=== PATIENT | female | born 1950 | race Caucasian/White ===

== ENCOUNTER → 2017-01-17 | Outpatient (CLI) | payer MEDICARE, OTHER ==
[~2017-01-17] MED LIST: ASP81CT PO; CA C1TAB26 PO; CALCIUM VIT D PO; CYAN1LOZ SL; CYCL10TA9 PO; MAGN400C PO; MELO-198 PO; MULT-963 PO; OXYC-200 PO; SIMV40TA2 PO
--- NOTE | 2017-01-23 18:14 | Diagnostic Imaging Report ---
Digital mammogram bilateral screening. This study was compared to the prior exams of 11/11/2015, 09/29/2014, and 03/06/2013. At this time, there are no current complaints. The current study was also evaluated with a Computer Aided Detection (CAD) system. FINDINGS: The fibroglandular tissue in both breasts is heterogeneously dense. This does limit the sensitivity of this exam. Overall, there does not appear to have been any significant change when compared to the prior study. No primary or secondary sign of malignancy is noted. IMPRESSION: There is no radiographic evidence for malignancy. ACR BI-RADS Category 1: Negative. Result letter will be mailed to the patient. Note: At least 10% of breast cancer is not imaged by mammography. Dictated by: Dictated on workstation # [id number]
== END ==
LOC: RAD 10:14
PROVIDERS: ATTEND Nurse Practitioner Family
DX: Z12.31 Encounter for screening mammogram for malignant neoplasm of breast (principal)
CPT/HCPCS: 77067

== ENCOUNTER 2017-06-21 11:19 | Outpatient (RCR) | payer MEDICARE, OTHER | END 2017-07-21 | disposition home or self-care (01) | LOC: CARD 11:19 | PROVIDERS: ATTEND Physician Assistant | DX: E78.2 Mixed hyperlipidemia; I25.10 Atherosclerotic heart disease of native coronary artery without angina pectoris; R06.02 Shortness of breath; R42 Dizziness and giddiness | CPT/HCPCS: 93225; 93226 ==

== ENCOUNTER → 2017-06-21 | Outpatient (CLI) | payer MEDICARE, OTHER | LOC: CARD 11:16 | PROVIDERS: ATTEND Physician Assistant | DX: I25.10 Atherosclerotic heart disease of native coronary artery without angina pectoris (principal); R42 Dizziness and giddiness; E78.2 Mixed hyperlipidemia; R06.02 Shortness of breath | CPT/HCPCS: 93306 ==

== ENCOUNTER → 2019-03-20 | Outpatient (CLI) | payer MEDICARE, OTHER ==
--- NOTE | 2019-03-20 20:38 | Diagnostic Imaging Report ---
INDICATION: Routine screening. Comparison is made with prior mammogram from 03/08/2018 and 01/17/2017. 2-D and 3-D bilateral screening mammography was performed with CAD. The current study was also evaluated with a Computer Aided Detection (CAD) system. Both breasts are heterogeneously dense, limiting the sensitivity of mammography. Scattered benign calcifications are again noted. No mass or malignant appearing microcalcifications are seen. Intraparenchymal lymph node in the upper-outer left breast is stable. Axillae are unremarkable. IMPRESSION: No mammographic features suspicious for malignancy are identified. ACR BI-RADS Category 2: Benign findings. Result letter will be mailed to the patient. Note: At least 10% of breast cancer is not imaged by mammography. Dictated by: Dictated on workstation # [id number]
== END ==
LOC: RAD 07:52
PROVIDERS: ATTEND Family Medicine
DX: Z12.31 Encounter for screening mammogram for malignant neoplasm of breast (principal)
CPT/HCPCS: 77067

== ENCOUNTER 2019-12-08 09:07 | Emergency (ER) | payer MEDICARE, OTHER ==
[~2019-12-08] VITALS: Ht 167.7 cm; Wt 97.2 kg
[2019-12-08] MEDS ORDERED: NS IV 1000 ML 1,000 ML IV SCH (10:03)
--- NOTE | 2019-12-08 10:10 | ED Chest Pain ---
General Chief Complaint: General Problems/Pain Stated Complaint: NUMB HANDS;LEFT SIDE PAIN Nursing Triage Note: TO ED PER W/C APPEARS TO BE HYPERVENTLATING,AND CRYING. REPORTS THAT SHE HAD A MASSAGE ON NOV 25 PAIN STARTED AFTER THAT. DEC [address] WAS PUT ON MEDS AND WAS TOLD SHE THOUGHT SHE WAS HAVING A FIBROMYALGIA FLARE.TODAY FELT NUMB DOWN BOTH ARMS AND IN HER HEAD. Nursing Sepsis Screen: No Definite Risk Source: patient, family Exam Limitations: no limitations History of Present Illness Date Seen by Provider: Dec 08, 2019 Time Seen by Provider: 09:41 Initial Comments The patient presents to ER by private conveyance with her spouse and chief complaint that she's having some right rib pain consistently for the past 6 weeks that started up after a deep tissue massage. She went to see her primary care doctor, Dr. Fonseca about a week or 2 ago and was started on muscle relaxants which she said did not help. Yesterday she started having some recurrence of left-sided abdominal pain that is chronic for her but 10 out of 10 when touched as well as light touch on her right ribs constant and 10 pain. 3 out of 10 at rest. She's not having any nausea fever chills cough shortness of breath wheezing or diarrhea. Noconstipation. Last bowel movement was yesterday, normal formed. She has a history of diverticulitis with short section of her colon removed surgically years ago. She does not smoke have diabetes use drugs or alcohol. She had a heart catheter many years ago and still follows with Dr. Berry but does not take blood thinners have any dysrhythmias or history of coronary disease. She has no stents. She does take aspirin daily. She does not want to take nitroglycerin because it causes headaches. She has a history of fibromyalgia and was told by her primary care doctor that her pains were probably due to the fibromyalgia however she said this morning when she had the worsening abdominal pain she became very scared and started to get tingling in her hands and hyperventilated. She takes Ativan 1 mg at night, regular basis for her anxieties. She did not take anymore this morning. Last oral intake was coffee with cream this morning and dinner yesterday evening. She has a history of cholecystectomy. Allergies and Home Medications Allergies Coded Allergies: latex (Unverified Allergy, Intermediate, RASH, 05/27/15) codeine (Verified Allergy, Unknown, 01/27/13) Uncoded Allergies: ERYTHROMYCIN (Allergy, Unknown, 05/27/15) SULFA (Allergy, Unknown, 05/27/15) Home Medications Aspirin 81 Mg Chew, 81 MG PO DAILY, (Reported) Ca Cmb No.1/Vit D3/B-6/Fa/B12 1 Each Tablet, 2,000 UNIT PO DAILY, (Reported) Meloxicam 7.5 Mg Tablet, 7.5 MG PO DAILY, (Reported) Multivitamin 1 Each Tablet, 1 EACH PO DAILY, (Reported) Oxycodone HCl/Acetaminophen 1 Each Tablet, 1 EACH PO Q6H Prescribed by: JES ESPINAL on 05/27/15 1106 [Calcium,Mg,Vit D] , 1 TAB PO DAILY, (Reported) Patient Home Medication List Home Medication List Reviewed: Yes Review of Systems Review of Systems Constitutional: No chills, No diaphoresis EENTM: No Blurred Vision, No Double Vision Respiratory: Denies Cough, Denies Shortness of Air Cardiovascular: See HPI, Chest Pain; Denies Edema Gastrointestinal: See HPI, Abdominal Pain; Denies Constipated, Denies Diarrhea, Denies Nausea, Denies Poor Fluid Intake, Denies Vomiting Genitourinary: Denies Discharge, Denies Drainage Musculoskeletal: see HPI; No back pain, No joint pain Psychiatric/Neurological: See HPI, Anxiety; Denies Depressed Endocrine: Denies Excessive Sweating, Denies Intolerance to Cold, Denies Intolerance to Heat, Denies Increased Urine Past Iywmtzl-Wirhyk-Ydkytg Hx Patient Social History Alcohol Use: Denies Use Recreational Drug Use: No Smoking Status: Never a Smoker Recent Foreign Travel: No Contact w/Someone Who Travel: No Recent Infectious Disease Expo: No Recent Hopitalizations: No Immunizations Up To Date Date of Pneumonia Vaccine: Aug 11, 2012 Date of Influenza Vaccine: Aug 11, 2012 Seasonal Allergies Seasonal Allergies: No Past Medical History Surgeries: Yes (LEFT KNEE REPLACEMENT, TOTAL RIGHT HIP, ) Gallbladder Respiratory: No Cardiac: Yes (Cardiac catheter 2012 with 30 percent stenosis of RCA) Neurological: No Reproductive Disorders: No Female Reproductive Disorders: Denies Sexually Transmitted Disease: No HIV/AIDS: No Gastrointestinal: Yes Gastroesophageal Reflux, Chronic Constipation, Diverticulosis, Chronic Diarrhea, Gall Bladder Disease Musculoskeletal: Yes (NECK PAIN) Osteoporosis, Arthritis, Fibromyalgia Endocrine: No Cataract Loss of Vision: Bilateral Hearing Impairment: Denies Cancer: No Psychosocial: No Integumentary: No Blood Disorders: No Adverse Reaction/Blood Tranf: No Family Medical History Heart Disease, Cancer Physical Exam Vital Signs Vital Signs - First Documented 12/08/19 09:25 Temp 36.8 Pulse 74 Resp 18 B/P (MAP) 181/89 (119) Pulse Ox 98 O2 Delivery Room Air Capillary Refill : Less Than 3 Seconds Height, Weight, BMI Height: 5'6" Weight: 198lbs. 0.0oz. 89.663048jm; 34.00 BMI Method:Stated General Appearance: Anxious, Obese HEENT: PERRL/EOMI, Pharynx Normal, Moist Mucous Membranes Neck: Full Range of Motion, Normal Inspection Respiratory: Lungs Clear, Normal Breath Sounds, No Accessory Muscle Use, No Respiratory Distress Cardiovascular: Regular Rate, Rhythm, No Edema, Normal Peripheral Pulses Gastrointestinal: Normal Bowel Sounds, Soft, Tenderness (negative for Rovsing sign or mesenteric signs but she does have some tenderness in her right upper quadrant abdomen as well as her left upper and left lower quadrant.) Extremity: Normal Capillary Refill, Normal Inspection, No Pedal Edema Neurologic/Psychiatric: Alert, Oriented x3, No Motor/Sensory Deficits Skin: Normal Color, Warm/Dry Progress/Results/Core Measures Results/Orders Lab Results Laboratory Tests Test 12/08/19 10:10 12/08/19 10:23 Range/Units White Blood Count 7.6 4.3-11.0 10^3/uL Red Blood Count 4.71 4.35-5.85 10^6/uL Hemoglobin 13.8 11.5-16.0 G/DL Hematocrit 42 35-52 % Mean Corpuscular Volume 89 80-99 FL Mean Corpuscular Hemoglobin 29 25-34 PG Mean Corpuscular Hemoglobin Concent 33 32-36 G/DL Red Cell Distribution Width 14.0 10.0-14.5 % Platelet Count 229 130-400 10^3/uL Mean Platelet Volume 9.7 7.4-10.4 FL Neutrophils (%) (Auto) 63 42-75 % Lymphocytes (%) (Auto) 29 12-44 % Monocytes (%) (Auto) 6 0-12 % Eosinophils (%) (Auto) 1 0-10 % Basophils (%) (Auto) 1 0-10 % Neutrophils # (Auto) 4.8 1.8-7.8 X 10^3 Lymphocytes # (Auto) 2.2 1.0-4.0 X 10^3 Monocytes # (Auto) 0.4 0.0-1.0 X 10^3 Eosinophils # (Auto) 0.1 0.0-0.3 10^3/uL Basophils # (Auto) 0.0 0.0-0.1 10^3/uL Sodium Level 139 135-145 MMOL/L Potassium Level 4.1 3.6-5.0 MMOL/L Chloride Level 106 98-107 MMOL/L Carbon Dioxide Level 24 21-32 MMOL/L Anion Gap 9 5-14 MMOL/L Blood Urea Nitrogen 12 7-18 MG/DL Creatinine 0.76 0.60-1.30 MG/DL Estimat Glomerular Filtration Rate > 60 BUN/Creatinine Ratio 16 Glucose Level 95 70-105 MG/DL Calcium Level 9.6 8.5-10.1 MG/DL Corrected Calcium 9.5 8.5-10.1 MG/DL Total Bilirubin 0.4 0.1-1.0 MG/DL Aspartate Amino Transf (AST/SGOT) 20 5-34 U/L Alanine Aminotransferase (ALT/SGPT) 15 0-55 U/L Alkaline Phosphatase 55 40-136 U/L Troponin I < 0.028 <0.028 NG/ML C-Reactive Protein High Sensitivity 1.03 H 0.00-0.50 MG/DL Total Protein 7.2 6.4-8.2 GM/DL Albumin 4.1 3.2-4.5 GM/DL Lipase 13 8-78 U/L Urine Color YELLOW Urine Clarity CLEAR Urine pH 8.5 5-9 Urine Specific [place] 1.010 L 1.016-1.022 Urine Protein NEGATIVE NEGATIVE Urine Glucose (UA) NEGATIVE NEGATIVE Urine Ketones NEGATIVE NEGATIVE Urine Nitrite NEGATIVE NEGATIVE Urine Bilirubin NEGATIVE NEGATIVE Urine Urobilinogen 0.2 < = 1.0 MG/DL Urine Leukocyte Esterase NEGATIVE NEGATIVE Urine RBC (Auto) NEGATIVE NEGATIVE Urine RBC NONE /HPF Urine WBC NONE /HPF Urine Squamous Epithelial Cells NONE /HPF Urine Crystals NONE /LPF Urine Bacteria NEGATIVE /HPF Urine Casts NONE /LPF Urine Mucus NEGATIVE /LPF Urine Culture Indicated NO My Orders Orders - RAMY LAM Lorazepam Injection (Ativan Injection) (12/08/19 10:15) Aspirin Chewable Tablet (Baby Aspirin Ch (12/08/19 10:15) Ekg Tracing (12/08/19 10:03) Continuous Ekg Monitoring (12/08/19 10:03) Cbc With Automated Diff (12/08/19 10:03) Comprehensive Metabolic Panel (12/08/19 10:03) Hs C Reactive Protein (12/08/19 10:03) Lipase (12/08/19 10:03) Troponin I (12/08/19 10:03) Chest 1 View, Ap/Pa Only (12/08/19 10:03) Ct Abdomen/Pelvis W (12/08/19 10:03) Ed Iv/Invasive Line Start (12/08/19 10:03) Ns Iv 1000 Ml (Sodium Chloride 0.9%) (12/08/19 10:03) Ua Culture If Indicated (12/08/19 10:36) Iohexol Injection (Omnipaque 350 Mg/Ml 1 (12/08/19 10:45) Received Contrast (Hold Metformin- Contr (12/08/19 10:45) Ns (Ivpb) (Sodium Chloride 0.9% Ivpb Bag (12/08/19 10:45) Medications Given in ED Current Medications Medications Dose Ordered Sig/Maria Antonia Route Start Time Stop Time Status Last Admin Dose Admin Aspirin 324 mg ONCE ONCE PO 12/08/19 10:15 12/08/19 10:16 DC 12/08/19 10:30 324 MG Lorazepam 0.5 mg ONCE ONCE IVP 12/08/19 10:15 12/08/19 10:16 DC 12/08/19 10:29 0.5 MG Vital Signs/I&O 12/08/19 09:25 Temp 36.8 Pulse 74 Resp 18 B/P (MAP) 181/89 (119) Pulse Ox 98 O2 Delivery Room Air Blood Pressure Mean: 119 Progress Progress Note #1: Time: 10:09 Progress Note She has had 6 weeks of pain in her right ribs and abdomen as well as tingling in her hands are probably musculoskeletal versus fibromyalgia. This morning she is probably experiencing a panic attack. She does have a history of panic attacks and anxiety significantly. We'll give her some Ativan as well as aspirin and obtain an EKG and troponin. She says the pain has been consistently entire 6 weeks in her right ribs so that should rule out any kind of coronary event. We'll obtain a chest x-ray and CT of her abdomen and pelvis given her history of diverticulitis and now new onset pain in her left abdomen. She says she does not anything for pain or nausea at this time. Echocardiogram by Dr. Berry 2016 demonstrating an EF 55-65% and mild mitral regurgitation. Negative stress test 2015. Cardiac catheterization [address] Bourgeois: Minor coronary artery disease involving the right coronary artery. Midportion has a 30% lesion. Normal left ventricular function and cardiac hemodynamics. Progress Note #2: Time: 11:57 Progress Note We discussed the patient's incidental nodule seen. We discussed appropriate workup. She says she had also CTs from the time she had her partial colon resection at [place] so we have instructed her to follow-up with primary care to review prior imaging. She says she's going to see them today. Terms of her pain she cites allergies to premature every opiate including tramadol. She might be better served by pain management specialty. She's tried Cymbalta in the past. We will encourage her to go back to primary care. Initial ECG Impression Date: Dec 08, 2019 Initial ECG Impression Time: 10:14 Initial ECG Rate: 53 Initial ECG Rhythm: Normal Sinus Initial ECG Intervals: Normal Initial ECG Impression: Normal Comment Normal sinus rhythm without significant ST elevation or depression. Diagnostic Imaging Diagonstic Imaging: Xray Plain Films/CT/US/NM/MRI: chest (1v) Comments NAME: KINJAL OJEDA [facility] REC#: [id number] PT STATUS: REG ER : 1950 PHYSICIAN: RAMY LAM MD ADMIT DATE: 12/08/19/ER Signed Date of Exam:12/08/19 CHEST 1 VIEW, AP/PA ONLY EXAMINATION: Chest radiograph, portable AP view. DATE: 12/08/2019 10:30 AM hours. INDICATION: 69-year-old female, chest pain. COMPARISON: October 16, 2016. FINDINGS: Heart size and mediastinal contours are unremarkable. There is no identified pneumothorax. There is no large pleural effusion. There is no radiographically apparent displaced rib fracture. IMPRESSION: 1. No identified acute cardiopulmonary abnormality. Dictated by: Dictated on workstation # [id number] Dict: 12/08/19 1032 Trans: 12/08/19 1038 [id number] Interpreted by: CHLOÉ MORA MD Electronically signed by: CHLOÉ MORA MD 12/08/19 1038 Reviewed: Reviewed by Me Diagonstic Imaging: CT (with IV contrast) Plain Films/CT/US/NM/MRI: abdomen, pelvis Comments NAME: KINJAL OJEDA [facility] REC#: [id number] PT STATUS: REG ER : 1950 PHYSICIAN: RAMY LAM MD ADMIT DATE: 12/08/19/ER Draft Date of Exam:12/08/19 CT ABDOMEN/PELVIS W PROCEDURE: CT abdomen and pelvis with contrast. TECHNIQUE: Multiple contiguous axial images were obtained through the abdomen and pelvis after administration of intravenous contrast. Auto Exposure Controls were utilized during the CT exam to meet ALARA standards for radiation dose reduction. INDICATION: Left upper quadrant pain, right upper quadrant pain. FINDINGS: Lung bases are clear. The liver is normal in size without focal lesions. Gallbladder is surgically absent. There is no biliary ductal dilatation. Spleen is normal. The pancreas is grossly normal in appearance. There is a 2.9 cm left adrenal mass. Right adrenal is normal in appearance. Kidneys are normal in appearance. Aorta is normal in caliber. There is moderate atherosclerotic calcification of the aorta. Bowel gas pattern is nonspecific. Bladder is normal. There is no pelvic mass, adenopathy, or free fluid. There are postsurgical changes of right hip arthroplasty. This does result in some beam hardening artifact overlying the pelvis. There are mild degenerative changes in the spine. IMPRESSION: 3 cm left adrenal mass. Imaging characteristics are not definitively compatible with adenoma. Further evaluation post-phase MRI is recommended to exclude the possibility of something other than adenoma. No other acute abnormality in the abdomen or pelvis. Dictated on workstation # [id number] Dict: 12/08/19 1109 Trans: 12/08/19 1134 [id number] [id number] Interpreted by: AWILDA ESTRADA MD Electronically signed by: Reviewed: Reviewed by Me Departure Impression Primary Impression: Rib pain on right side Additional Impressions: Left lateral abdominal pain Fibromyalgia Disposition: HOME, SELF-CARE Condition: Stable Departure-Patient Inst. Decision time for Depature: 11:58 Referrals: KELY FONSECA MD (PCP/Family) Primary Care Physician Patient Instructions: Flank Pain (DC) Add. Discharge Instructions: Call Dr. Fonseca and request follow-up appointment. You'll need to follow-up the adrenal lesions seen on CT through her office. You should also discuss strategies for controlling your fibromyalgia. Return to the ER if you're experiencing fever, intractable nausea vomiting or pain. All discharge instructions reviewed with patient and/or family. Voiced understanding. Copy Copies To 1: KELY FONSECA MD, TITUS J Dec 08, 2019 10:10
[2019-12-08] MEDS ORDERED: ASPIRIN 81 MG CHEW (CHILDREN'S ASA) PO ONE (10:15)
[2019-12-08] MEDS ORDERED: LORazepam INJ 2 MG/ML (ATIVAN) VIAL IVP ONE (10:15)
[2019-12-08 10:21] LABS: BASOPHILS % (AUTO) 1 % (0-10); EOSINOPHILS # (AUTO) 0.1 10^3/uL (0.0-0.3); EOSINOPHILS % (AUTO) 1 % (0-10); HEMATOCRIT 42 % (35-52); HEMOGLOBIN 13.8 G/DL (11.5-16.0); LYMPHOCYTES # (AUTO) 2.2 X 10^3 (1.0-4.0); LYMPHOCYTES % (AUTO) 29 % (12-44); MEAN CORPUSCULAR HEMOGLOBIN 29 PG (25-34); MEAN CORPUSCULAR HGB CONC 33 G/DL (32-36); MEAN CORPUSCULAR VOLUME 89 FL (80-99); MEAN PLATELET VOLUME 9.7 FL (7.4-10.4); MONOCYTES # (AUTO) 0.4 X 10^3 (0.0-1.0); MONOCYTES % (AUTO) 6 % (0-12); NEUTROPHILS # (AUTO) 4.8 X 10^3 (1.8-7.8); NEUTROPHILS % (AUTO) 63 % (42-75); PLATELET COUNT 229 10^3/uL (130-400); WHITE BLOOD COUNT 7.6 10^3/uL (4.3-11.0)
--- NOTE | 2019-12-08 10:34 | Diagnostic Imaging Report ---
EXAMINATION: Chest radiograph, portable AP view. DATE: 12/08/2019 10:30 AM hours. INDICATION: 69-year-old female, chest pain. COMPARISON: October 16, 2016. FINDINGS: Heart size and mediastinal contours are unremarkable. There is no identified pneumothorax. There is no large pleural effusion. There is no radiographically apparent displaced rib fracture. IMPRESSION: 1. No identified acute cardiopulmonary abnormality. Dictated by: Dictated on workstation # [id number]
[2019-12-08 10:42] LABS: ALANINE AMINOTRANSFERASE 15 U/L (0-55); ALBUMIN 4.1 GM/DL (3.2-4.5); ALKALINE PHOSPHATASE 55 U/L (40-136); BILIRUBIN,TOTAL 0.4 MG/DL (0.1-1.0); BUN/CREATININE RATIO 16; CALCIUM 9.6 MG/DL (8.5-10.1); CARBON DIOXIDE 24 MMOL/L (21-32); CHLORIDE 106 MMOL/L (98-107); CREATININE SERUM 0.76 MG/DL (0.60-1.30); GFR ESTIMATED > 60; GLUCOSE 95 MG/DL (70-105); LIPASE 13 U/L (8-78); POTASSIUM 4.1 MMOL/L (3.6-5.0); SODIUM 139 MMOL/L (135-145); TOTAL PROTEIN 7.2 GM/DL (6.4-8.2)
[2019-12-08 10:43] LABS: BILIRUBIN,URINE NEGATIVE (NEGATIVE); CLARITY,URINE CLEAR; COLOR,URINE YELLOW; GLUCOSE, URINE (UA) NEGATIVE (NEGATIVE); KETONES,URINE NEGATIVE (NEGATIVE); LEUKOCYTE ESTERASE ,URINE NEGATIVE (NEGATIVE); NITRITE,URINE NEGATIVE (NEGATIVE); PH,URINE 8.5 (5-9); PROTEIN,URINE NEGATIVE (NEGATIVE)
[2019-12-08] MEDS ORDERED: HOLD METFORMIN - RECEIVED CONTRAST 20 ML VIAL IV SCH (10:45)
[2019-12-08] MEDS ORDERED: IOHEXOL 350 MG/ML 100 ML (OMNIPAQUE 350) VIAL IV ONE (10:45)
[2019-12-08] MEDS ORDERED: NS 100 ML (IVPB) BAG IV ONE (10:45)
[2019-12-08 10:59] LABS: BACTERIA,URINE NEGATIVE /HPF
--- NOTE | 2019-12-08 11:34 | Diagnostic Imaging Report ---
PROCEDURE: CT abdomen and pelvis with contrast. TECHNIQUE: Multiple contiguous axial images were obtained through the abdomen and pelvis after administration of intravenous contrast. Auto Exposure Controls were utilized during the CT exam to meet ALARA standards for radiation dose reduction. INDICATION: Left upper quadrant pain, right upper quadrant pain. FINDINGS: Lung bases are clear. The liver is normal in size without focal lesions. Gallbladder is surgically absent. There is no biliary ductal dilatation. Spleen is normal. The pancreas is grossly normal in appearance. There is a 2.9 cm left adrenal mass. Right adrenal is normal in appearance. Kidneys are normal in appearance. Aorta is normal in caliber. There is moderate atherosclerotic calcification of the aorta. Bowel gas pattern is nonspecific. Bladder is normal. There is no pelvic mass, adenopathy, or free fluid. There are postsurgical changes of right hip arthroplasty. This does result in some beam hardening artifact overlying the pelvis. There are mild degenerative changes in the spine. IMPRESSION: 3 cm left adrenal mass. Imaging characteristics are not definitively compatible with adenoma. Further evaluation in and opposed phased MRI is recommended to exclude the possibility of something other than adenoma. No other acute abnormality in the abdomen or pelvis. Dictated by: Dictated on workstation # [id number]
--- NOTE | 2019-12-08 11:45 | NUR ---
DR LAM IN ROOM DISCUSSING TEST RESULTS
[2019-12-08 12:06] VITALS: BP 152/71
== END 2019-12-08 12:03 | disposition home or self-care (01) ==
LOC: EDUNIT# 09:07 → ER 09:08
DX: R07.81 Pleurodynia (principal); R10.31 Right lower quadrant pain; R10.32 Left lower quadrant pain; R10.11 Right upper quadrant pain; M79.7 Fibromyalgia; Z90.49 Acquired absence of other specified parts of digestive tract; Z88.5 Allergy status to narcotic agent; Z88.1 Allergy status to other antibiotic agents; Z91.040 Latex allergy status; Z88.2 Allergy status to sulfonamides; Z79.82 Long term (current) use of aspirin; Z95.9 Presence of cardiac and vascular implant and graft, unspecified; Z82.49 Family history of ischemic heart disease and other diseases of the circulatory system
CPT/HCPCS: 36415; 71045; 74177; 80053; 81000; 83690; 84484; 85025; 86141; 93005; 96374

== ENCOUNTER → 2020-03-29 | Outpatient (CLI) | payer MEDICARE, OTHER ==
--- NOTE | 2020-03-29 14:55 | Diagnostic Imaging Report ---
INDICATION: Routine screening. COMPARISON: 03/20/2019 and 03/08/2018. TECHNIQUE: 2D and 3D bilateral screening mammography was performed with CAD. FINDINGS: Both breasts are heterogeneously dense, limiting the sensitivity of mammography. A nodular density has developed in the lower and outer aspect of the right breast at posterior depth. This appears slightly lobulated. No other masses are seen. There are benign calcifications in both breasts. No malignant appearing microcalcifications are seen. The axillae are unremarkable. IMPRESSION: Development of a nodular density in the lower outer right breast at mid to posterior depth. Additional views and ultrasound are recommended for further evaluation. ACR BI-RADS Category 0: Incomplete. (Needs additional imaging evaluation). Result letter will be mailed to the patient. Note: At least 10% of breast cancer is not imaged by mammography. Dictated by: Dictated on workstation # [id number]
== END ==
LOC: RAD 10:33
PROVIDERS: ATTEND Family Medicine
DX: Z12.31 Encounter for screening mammogram for malignant neoplasm of breast (principal)
CPT/HCPCS: 77063; 77067

== ENCOUNTER → 2020-04-02 | Outpatient (CLI) | payer MEDICARE, OTHER ==
--- NOTE | 2020-04-02 20:29 | Diagnostic Imaging Report ---
INDICATION: Right breast nodule. The patient presents for additional views. Correlation is made with recent screening study from 03/29/2020. Current study was evaluated with a computer aided detection (CAD) system. Unilateral right 2-D and 3-D diagnostic mammography was performed. This included spot compression CC and ML views as well as conventional 90 degree lateral view. Additional views confirm the presence of a small circumscribed nodule in the lower outer aspect of the right breast approximately 8 to 9 cm from the nipple. No suspicious calcifications are seen. IMPRESSION: Circumscribed nodule lower outer right breast posterior depth. Further evaluation with ultrasound is recommended and will be performed today. ACR BI-RADS Category 0 : Needs additional imaging Result letter will be mailed to the patient. Note: At least 10% of breast cancer is not imaged by mammography. Dictated by: Dictated on workstation # [id number]
--- NOTE | 2020-04-02 20:33 | Diagnostic Imaging Report ---
INDICATION: Right breast density. Correlation is made with diagnostic mammogram earlier the same day and screening mammogram from 03/29/2020. FINDINGS: Sonographic interrogation of the lower-outer right breast was performed. There is a hypoechoic nodule at the 8 o'clock location, 7 cm from the nipple. This measures 5 mm x 5 mm x 3 mm. This does show some internal blood flow. No posterior acoustic shadowing is seen. No other abnormalities are detected. IMPRESSION: 5 mm hypoechoic nodule at the 8 o'clock location of the right breast 7 cm from the nipple. This likely accounts for the mammographic density. This does appear to be solid and cannot be characterized as simply benign. A small breast neoplasm cannot be entirely excluded. Tissue sampling is recommended. This would be amenable to ultrasound-guided biopsy. ACR BI-RADS Category 4: Suspicious abnormality. Result letter will be mailed to the patient. Note: At least 10% of breast cancer is not imaged by mammography. Dictated by: Dictated on workstation # [id number]
== END ==
LOC: RAD 12:58
PROVIDERS: ATTEND Nurse Practitioner Family
DX: N63.13 Unspecified lump in the right breast, lower outer quadrant (principal)
CPT/HCPCS: 76642; 77065; G0279

== ENCOUNTER → 2020-04-09 | Outpatient (CLI) | payer MEDICARE, OTHER ==
[~2020-04-09] VITALS: Ht 167.7 cm; Wt 94.1 kg
[~2020-04-09] MED LIST changes: +LIDOCAINE 1% INJ 20 ML 20 ML VIAL INJ ONE
--- NOTE | 2020-04-09 15:20 | Diagnostic Imaging Report ---
INDICATION: Right breast nodule, status post ultrasound biopsy. CORRELATION is made with prior exam from 03/29/2020. Unilateral right 2D CC and ML mammography was performed status post ultrasound guided core biopsy. A marker clip is identified in the lower outer right breast in the region of previously noted nodule. There is some surrounding density consistent with hematoma. IMPRESSION: Right breast biopsy with marker clip, as described. Dictated by: Dictated on workstation # [id number]
--- NOTE | 2020-04-09 15:20 | Diagnostic Imaging Report ---
INDICATION: Right breast mass. Patient presents for ultrasound-guided biopsy. The patient was brought to the procedure room, placed on the table in the supine position. Ultrasound imaging of the right breast was performed to evaluate appropriate entry site. The right breast was then prepped and draped in the usual sterile fashion. A small amount of 1% lidocaine was utilized for local anesthesia. A 10-gauge handheld mammotome vacuum-assisted device was advanced and placed with its biopsy chamber adjacent to the margin of the hypoechoic nodule at the 8:00 location of the right breast, 7 cm from the nipple. A total of 3 core biopsies were obtained. Following the 3 biopsies, the lesion was very difficult to visualize and nearly completely gone. Hand held mammotome was removed. A marker clip was then deployed at the biopsy site. Hemostasis was obtained using manual compression. The patient tolerated the procedure well and left the department in stable condition. IMPRESSION: Successful ultrasound-guided core biopsy of the hypoechoic nodule at the 8:00 location of the right breast, 7 cm from the nipple utilizing a 10-gauge hand-held mammotome vacuum-assisted device. Pathology results are currently pending. Dictated by: Dictated on workstation # [id number]
== END ==
LOC: RAD 12:01
PROVIDERS: ATTEND Nurse Practitioner Family
DX: N63.13 Unspecified lump in the right breast, lower outer quadrant (principal); R92.8 Other abnormal and inconclusive findings on diagnostic imaging of breast
CPT/HCPCS: 19083; 77065; G0279

== ENCOUNTER 2020-06-14 10:47 | Outpatient (RCR) | payer MEDICARE, OTHER ==
[2020-04-21 14:38] LABS: BASOPHILS % (AUTO) 0 % (0-10); EOSINOPHILS # (AUTO) 0.1 10^3/uL (0.0-0.3); EOSINOPHILS % (AUTO) 1 % (0-10); HEMATOCRIT 41 % (35-52); HEMOGLOBIN 13.7 G/DL (11.5-16.0); LYMPHOCYTES # (AUTO) 2.3 X 10^3 (1.0-4.0); LYMPHOCYTES % (AUTO) 27 % (12-44); MEAN CORPUSCULAR HEMOGLOBIN 30 PG (25-34); MEAN CORPUSCULAR HGB CONC 33 G/DL (32-36); MEAN CORPUSCULAR VOLUME 90 FL (80-99); MEAN PLATELET VOLUME 9.5 FL (7.4-10.4); MONOCYTES # (AUTO) 0.5 X 10^3 (0.0-1.0); MONOCYTES % (AUTO) 6 % (0-12); NEUTROPHILS # (AUTO) 5.6 X 10^3 (1.8-7.8); NEUTROPHILS % (AUTO) 66 % (42-75); PLATELET COUNT 230 10^3/uL (130-400); WHITE BLOOD COUNT 8.5 10^3/uL (4.3-11.0)
[2020-04-21 14:57] LABS: ALANINE AMINOTRANSFERASE 11 U/L (0-55); ALBUMIN 4.2 GM/DL (3.2-4.5); ALKALINE PHOSPHATASE 54 U/L (40-136); BILIRUBIN,TOTAL 0.4 MG/DL (0.1-1.0); BUN/CREATININE RATIO 25; CALCIUM 9.2 MG/DL (8.5-10.1); CARBON DIOXIDE 24 MMOL/L (21-32); CHLORIDE 105 MMOL/L (98-107); CREATININE SERUM 0.81 MG/DL (0.60-1.30); GFR ESTIMATED > 60; GLUCOSE 93 MG/DL (70-105); POTASSIUM 4.1 MMOL/L (3.6-5.0); SODIUM 138 MMOL/L (135-145); TOTAL PROTEIN 7.4 GM/DL (6.4-8.2)
[~2020-06-14 10:47] MED LIST changes: -LIDOCAINE 1% INJ 20 ML 20 ML VIAL INJ ONE
== END 2020-07-20 | disposition home or self-care (01) ==
LOC: ONC 10:47
PROVIDERS: ATTEND Internal Medicine Hematology & Oncology
DX: C50.511 Malignant neoplasm of lower-outer quadrant of right female breast (principal); M79.7 Fibromyalgia; M19.90 Unspecified osteoarthritis, unspecified site; E27.8 Other specified disorders of adrenal gland; I25.10 Atherosclerotic heart disease of native coronary artery without angina pectoris; Z90.49 Acquired absence of other specified parts of digestive tract; Z96.652 Presence of left artificial knee joint; Z96.641 Presence of right artificial hip joint
CPT/HCPCS: 80053; 85025; G0463; 99213; 99214

== ENCOUNTER → 2020-06-21 | Outpatient (CLI) | payer MEDICARE, OTHER | LOC: CARD 11:01 | PROVIDERS: ATTEND Internal Medicine Cardiovascular Disease | DX: I25.10 Atherosclerotic heart disease of native coronary artery without angina pectoris (principal); E78.2 Mixed hyperlipidemia; M51.9 Unspecified thoracic, thoracolumbar and lumbosacral intervertebral disc disorder; R42 Dizziness and giddiness | CPT/HCPCS: 93306 ==

== ENCOUNTER → 2020-07-12 | Outpatient (CLI) | payer MEDICARE, OTHER ==
--- NOTE | 2020-07-12 12:00 | Diagnostic Imaging Report ---
INDICATION: Right breast carcinoma. COMPARISON: Prior right breast ultrasound from 04/02/2020. TECHNIQUE: Sonographic interrogation of the right breast a the 8 o'clock location 7cm from the nipple was performed. FINDINGS: There appears to be some fluid at this location, likely residual hematoma from prior biopsy. This measures approximately 1.5 x 1.3 x 0.7 cm. There is a tiny adjacent region of rounded hypoechogenicity which may represent the known tumor. This is very small at approximately 2 mm. The original tumor size was approximately 5 mm x 3 mm x 5 mm. IMPRESSION: The known right breast neoplasm demonstrates biopsy changes at the 8 o'clock location 7 cm from the nipple, likely with a small hematoma. There is a tiny approximately 2 mm nodule at this location which may represent the original tumor which is now smaller when compared to the exam from 04/02/2020. ACR BI-RADS Category 6: Known biopsy proven malignancy. Dictated by: Dictated on workstation # [id number]
== END ==
LOC: RAD 10:13
PROVIDERS: ATTEND Internal Medicine Hematology & Oncology
DX: C50.511 Malignant neoplasm of lower-outer quadrant of right female breast (principal); Z98.890 Other specified postprocedural states

== ENCOUNTER → 2020-07-13 | Outpatient (CLI) | payer MEDICARE, OTHER | LOC: ONC 10:37 | PROVIDERS: ATTEND Internal Medicine Hematology & Oncology | DX: C50.511 Malignant neoplasm of lower-outer quadrant of right female breast (principal); E27.8 Other specified disorders of adrenal gland; I25.10 Atherosclerotic heart disease of native coronary artery without angina pectoris; E78.2 Mixed hyperlipidemia; M79.7 Fibromyalgia; M19.90 Unspecified osteoarthritis, unspecified site; Z96.641 Presence of right artificial hip joint; Z96.652 Presence of left artificial knee joint; Z78.0 Asymptomatic menopausal state; Z90.49 Acquired absence of other specified parts of digestive tract | CPT/HCPCS: 99213 ==

== ENCOUNTER → 2020-07-14 | Outpatient (CLI) | payer MEDICARE, OTHER ==
[~2020-07-14] VITALS: Ht 167 cm; Wt 96.0 kg
[~2020-07-14] MED LIST changes: +CATHETER FLUSH 10 ML SYR IV PRN; +REGADENOSON 0.4 MG/5 ML SYR (LEXISCAN) IV ONE
[2020-07-14 09:38] VITALS: BP 134/84
[2020-07-14 09:41] VITALS: BP 158/69
--- NOTE | 2020-07-14 11:24 | Cardiology Stress Test Report ---
Stress Test Report Date of Procedure/Referring: Date of Procedure: Jul 14, 2020 PCP Herminio Berry MD Admitting Physician Amada Fonseca MD Indications: Coronary artery disease Baseline Heart Rate: 52 Baseline Blood Pressure: Blood Pressure Systolic: 158 Blood Pressure Diastolic: 69 Baseline Vitals Vital Signs Date Time Temp Pulse Resp B/P (MAP) Pulse Ox O2 Delivery O2 Flow Rate FiO2 07/14/20 09:38 61 17 134/84 (101) Room Air 07/14/20 09:41 99 Baseline EKG: Baseline EKG: normal sinus rhythm Summary After explaining the procedure to the patient, she signed a consent and then brought to the stress nuclear laboratory. Patient received 0.4 mg Lexiscan for stress test, ECG, heart rate and blood pressure were monitored continuously. Resting and stress dose of radio tracer were injected, imaging was acquired and reviewed in short axis, horizontal long axis and vertical long axis views. TID: 1.04 SSS: 0 SDS: 0 EF: 67 1. Patient tolerated Lexiscan well 2. No significant ischemia or infarction on SPECT images 3. Normal left ventricular size, EF 67 percent HERMINIO BERRY MD Jul 14, 2020 11:24
== END ==
LOC: CARD 08:01
PROVIDERS: ATTEND Internal Medicine Cardiovascular Disease
DX: I25.10 Atherosclerotic heart disease of native coronary artery without angina pectoris (principal); E78.2 Mixed hyperlipidemia; R42 Dizziness and giddiness; M51.9 Unspecified thoracic, thoracolumbar and lumbosacral intervertebral disc disorder
CPT/HCPCS: 78452; 93017; A9502

== ENCOUNTER 2020-09-06 05:34 | Outpatient (RCR) | payer MEDICARE, OTHER ==
[~2020-09-06] VITALS: Ht 167.7 cm; Wt 98.2 kg
[~2020-09-06 05:34] MED LIST changes: +ASPI-999 PO; -CATHETER FLUSH 10 ML SYR IV PRN; +CELE200C PO; +CHOL200059 PO; +LORA-405 SL; +LOSA25TA41 PO; +MAGN250T2 PO; +MULT-1136 PO; -REGADENOSON 0.4 MG/5 ML SYR (LEXISCAN) IV ONE; +TRAM50TA3 PO
== END 2020-09-06 09:22 | disposition home or self-care (01) ==
LOC: PREOP 05:34
PROVIDERS: ATTEND Surgery
DX: Z01.812 Encounter for preprocedural laboratory examination (principal); C50.911 Malignant neoplasm of unspecified site of right female breast; Z20.828 Contact with and (suspected) exposure to other viral communicable diseases
CPT/HCPCS: 87635

== ENCOUNTER 2020-09-09 06:05 | Day surgery (SDC) | payer MEDICARE, OTHER ==
[~2020-09-09] VITALS: Ht 167 cm; Wt 98.2 kg
[2020-09-09] VITALS (10 sets, daily range): BP systolic 136–161; BP diastolic 59–80
[2020-09-09] MEDS ORDERED: ceFAZolin 2 GM IV Premixed 50 ML IV ONE (06:30)
[2020-09-09] MEDS ORDERED: CATHETER FLUSH 10 ML SYR IV PRN (07:00)
--- NOTE | 2020-09-09 07:52 | Progress Note-Pre Operative ---
Pre-Operative Progress Note H&P Reviewed The H&P was reviewed, patient examined and no changes noted. Date Seen by Provider: Sep 09, 2020 Time Seen by Provider: 07:51 Date H&P Reviewed: Sep 09, 2020 Time H&P Reviewed: 07:51 Pre-Operative Diagnosis: invasive ductal carcinoma right breast SIS WEI DO Sep 09, 2020 07:52
[2020-09-09] MEDS ORDERED: MIDAZOLAM 2 MG/2 ML (VERSED) VIAL ONE (08:07)
[2020-09-09] MEDS ORDERED: LIDOCAINE 1% INJ 20 ML 20 ML VIAL INJ ONE (08:15)
[2020-09-09] MEDS ORDERED: MIDAZOLAM 2 MG/2 ML (VERSED) VIAL IVP ONE (08:15)
[2020-09-09] MEDS: LACTATED RINGERS 1,000 ML IV PRN ×2 (09:19→11:02)
--- NOTE | 2020-09-09 09:24 | Diagnostic Imaging Report ---
Indication: Right breast carcinoma. Patient presents for ultrasound-guided hookwire localization. Patient brought to the sonographic suite and placed on table in supine position. Ultrasound imaging of the right breast was performed evaluating appropriate entry site. Right breast was then prepped and draped in the usual sterile fashion. A small amount of 1% lidocaine was utilized for local anesthesia. Localizer needle was then advanced into the right breast and placed adjacent to the marker clip at the 8:00 location of the right breast, 7 cm from the nipple. No residual breast mass is visualized. Hookwire was then deployed and the needle was removed. A hookwire was affixed to the patient's skin. Patient tolerated the procedure well and was sent to preoperative in satisfactory condition. IMPRESSION: Successful ultrasound-guided hookwire localization of the marker clip at the right breast 8:00 location, 7 cm from the nipple. Dictated by: Dictated on workstation # [id number]
[2020-09-09] MEDS ORDERED: 0.9% SODIUM CHLORIDE PF INJ 20 ML VIAL ONE (09:39)
[2020-09-09] MEDS ORDERED: LIDOCAINE/EPI 1%-1:100,000 (XYLOCAINE) 20ML ONE (09:39)
--- NOTE | 2020-09-09 09:40 | Diagnostic Imaging Report ---
Indication: Breast cancer Isotope injection for sentinel node localization. 1.05 mCi of technetium 99m filtered sulfur colloid was injected in divided doses into the periareolar region of the right breast. IMPRESSION: Images were recorded 2 hours postinjection showing uptake in the right axillary lymph node. Dictated by: Dictated on workstation # [id number]
[2020-09-09] MEDS ORDERED: INDIGO CARMINE 8 MG/ML 5 ML AMP ONE (09:41)
[2020-09-09] MEDS ORDERED: fentaNYL INJECTION 100 MCG/2 ML AMP ONE (10:04)
--- NOTE | 2020-09-09 11:06 | Diagnostic Imaging Report ---
INDICATION: Right breast carcinoma. Patient is status post hookwire localization. 2D, CC and ML mammography was performed after patient underwent ultrasound-guided hookwire localization. Hookwire is noted adjacent to the clip in the lower outer aspect of the right breast at posterior depth. IMPRESSION: Hookwire placement, as described. Dictated by: Dictated on workstation # [id number]
[2020-09-09] MEDS ORDERED: proPOfol 200 MG/20 ML (DIPRIVAN) VIAL IV ONE (11:26)
[2020-09-09] MEDS ORDERED: ONDANSETRON 4 MG/2 ML (SDV) Z0FRAN ONE ×2 (11:26→11:40)
[2020-09-09] MEDS ORDERED: LIDOCAINE PF 2% 5 ML (XYLOCAINE) VIAL ONE (11:26)
[2020-09-09] MEDS ORDERED: SEVOFLURANE (ULTANE) 15 ML INHAL SOLN ONE (11:26)
[2020-09-09] MEDS ORDERED: INDIGO CARMINE 8 MG/ML 5 ML AMP INJ ONE (11:30)
[2020-09-09] MEDS ORDERED: morphine INJ 10 MG/ML 1ML (SYR OR VIAL) ONE (12:04)
[2020-09-09] MEDS ORDERED: morphine INJ 10 MG/ML 1ML (SYR OR VIAL) IVP ONE (12:15)
[2020-09-09] MEDS ORDERED: HYDROmorphone 2 MG/ML VIAL (DILAUDID) IV ONE (12:15)
[2020-09-09] MEDS ORDERED: ONDANSETRON 4 MG/2 ML (SDV) Z0FRAN IVP PRN (12:15)
[2020-09-09] MEDS ORDERED: HYDR-4226 PO (12:51)
--- NOTE | 2020-09-09 12:52 | Discharge Inst-Simple/Standard ---
Discharge Inst-Standard Discharge Medications New, Converted or Re-Newed RX: RX on Chart Patient Instructions/Follow Up Plan of Care/Instructions/FU: 3 weeks Muna Activity as Tolerated: No Discharge Diet: Regular Diet Other Inst to Patient Follow up Appt: Make appointment for 3 week. Instructions: No lifting greater than 10 pounds. No strenuous activity. May shower in 24 hours, no tub bath or soaking. Use incentive spirometer at home as directed. No Smoking Skin/Wound Care: You have special glue over your incision that will fall off on it's own. Symptoms to Report: Appetite Changes, Extremity Discoloration, Numbness/Tingling, Swelling Increased, Bleeding Excessive, Eyesight Changes, Pain Increased, Urine Color Change, Constipation(Persistent), Fever over 101 degree F, Pain/Pressure in chest, Urinating Difficulty, Cough Up/Vomit Blood, Heart Beat Irreg/Pounding, Pain/Pressure in jaw, Vaginal Bleeding Increase, Cramps in feet or legs, Lightheadedness, Pain/Pressure in shoulder, Diarrhea(Persistent), Memory Changes Suddenly, Questions/Concerns, Weight gain consecutive days, Dizziness/Fainting, Nausea/Vomiting, Shortness of Breath, Weight gain over 2 pounds If questions or concerns contact your physician Or seek help at emergency department. SIS WEI DO Sep 09, 2020 12:52
--- NOTE | 2020-09-09 12:54 | Progress Note-Post Operative ---
Post-Operative Progess Note Surgeon (s)/Neck Pinner (s) Surgeon SIS WEI DO Neck Pinner: Dr. Harris to assist in retraction dissection and closure. Pre-Operative Diagnosis invasive ductal carcinoma right breast Post-Operative Diagnosis same Procedure & Operative Findings Date of Procedure 09/09/20 Procedure Performed/Findings wire localized right breast lumpectomy with sentinel lymph node biopsy Anesthesia Type gen Estimated Blood Loss Estimated blood loss (mL): min Specimens/Packing Specimens Removed sn, right breast ca SIS WEI DO Sep 09, 2020 12:54
--- NOTE | 2020-09-09 12:58 | Anesthesia-General Post-Op ---
General Patient Condition Mental Status/LOC: Same as Preop Cardiovascular: Satisfactory Nausea/Vomiting: Present Respiratory: Satisfactory Pain: Controlled Complications: Absent Post Op Complications Complications None Follow Up Care/Instructions Patient Instructions None needed. Anesthesia/Patient Condition Patient Condition Patient is doing well, had some nausea in PACU but currently seems improved per patient, stable vital signs, no apparent adverse anesthesia problems. OMER GARCIA DO Sep 09, 2020 12:58
--- NOTE | 2020-09-09 16:14 | Diagnostic Imaging Report ---
INDICATION: Right breast carcinoma. IMPRESSION: Specimen radiograph was submitted from lumpectomy of the right breast. The hookwire as well as the marker clip are located within the specimen. Dictated by: Dictated on workstation # [id number]
--- NOTE | 2020-09-10 05:17 | OPERATIVE REPORT ---
DATE OF SERVICE: 09/09/2020 PREOPERATIVE DIAGNOSIS: Right breast infiltrating ductal carcinoma. POSTOPERATIVE DIAGNOSIS: Right breast infiltrating ductal carcinoma. PROCEDURE: Right wire localized lumpectomy with sentinel lymph node biopsy. SURGEON: Sis Toro DO DRUM DYEING MACHINE OPERATOR: Dr. Harris, assisted in retraction, dissection and closure. ANESTHESIA: General. ESTIMATED BLOOD LOSS: Minimal. COMPLICATIONS: None. INDICATIONS: The patient is a 70-year-old female with breast cancer, which she was discussed surgical options. She understands risks and benefits and wishes to proceed with procedure. Consent was signed in the chart. DESCRIPTION OF PROCEDURE: The patient was taken to the operating suite. She was prepped and draped in sterile fashion. Timeout was performed. The [employer] counter was used for sentinel node biopsy. Once located, a 15 blade scalpel was used to make a small skin incision and cautery used to dissect down through the subcutaneous tissues and then a hemostat was then used to dissect until the hot lymph node was isolated and dissected around and cautery used to remove it. The sentinel node count was 3100. The 10-second count was 14,378. The axilla was then reexamined. There were no other palpable lymph nodes or visualized lymph nodes due to the methylene blue that had been previously injected and no other findings within 10% of the original count. The wound was then irrigated with copious amounts of irrigation. Hemostasis was achieved. The skin was then closed using 4-0 Monocryl in a subcuticular fashion. Attention then was to the lumpectomy breast wire and incision was made in the right lower quadrant of the breast. Skin flap was created to bring the wire out through the incision. Cautery was used to then dissect circumferentially around the wire, removing the wire and breast tissue. The specimen was labeled one long suture lateral, two short sutures superiorly and two long sutures deep. The specimen was sent to radiology obtaining a wire and clip. The wound was then irrigated with copious amounts of irrigation. Hemostasis was achieved. Clips were placed in the pocket of the cavity and then the skin was then closed using 4-0 Monocryl in a subcuticular fashion. The patient then had the incisions washed and dried and Skin Affix was placed over the incisions. The patient tolerated procedure well without any complications. She was taken to the recovery room in stable condition. Job ID: [id number] DocumentID: [id number] Dictated Date: 09/09/2020 23:11:14 Export Freight Manager Date: 09/10/2020 05:15:25 Dictated By: SIS TORO DO
== END 2020-09-09 13:40 ==
LOC: CARD 06:05
PROVIDERS: ATTEND Surgery
DX: C50.911 Malignant neoplasm of unspecified site of right female breast (principal); I10 Essential (primary) hypertension; I25.10 Atherosclerotic heart disease of native coronary artery without angina pectoris; M19.90 Unspecified osteoarthritis, unspecified site; E78.2 Mixed hyperlipidemia; E66.9 Obesity, unspecified; Z68.35 Body mass index [BMI] 35.0-35.9, adult; Z79.899 Other long term (current) drug therapy; Z79.82 Long term (current) use of aspirin; Z91.040 Latex allergy status; Z88.8 Allergy status to other drugs, medicaments and biological substances; Z88.2 Allergy status to sulfonamides; Z88.5 Allergy status to narcotic agent; Z88.1 Allergy status to other antibiotic agents; Z87.891 Personal history of nicotine dependence; Z80.1 Family history of malignant neoplasm of trachea, bronchus and lung; Z80.3 Family history of malignant neoplasm of breast
CPT/HCPCS: 19285; 19301; 38525; 76098; 77065; 78195; 87081; A9541; G0279

== ENCOUNTER 2020-10-20 08:16 | Outpatient (RCR) | payer MEDICARE, OTHER ==
[2020-08-18 13:00] LABS: BASOPHILS # (AUTO) 0.1 10^3/uL (0.0-0.1); BASOPHILS % (AUTO) 1 % (0-10); EOSINOPHILS # (AUTO) 0.1 10^3/uL (0.0-0.3); EOSINOPHILS % (AUTO) 1 % (0-10); HEMATOCRIT 40 % (35-52); HEMOGLOBIN 12.8 g/dL (11.5-16.0); LYMPHOCYTES # (AUTO) 2.2 10^3/uL (1.0-4.0); LYMPHOCYTES % (AUTO) 29 % (12-44); MEAN CORPUSCULAR HEMOGLOBIN 30 pg (25-34); MEAN CORPUSCULAR HGB CONC 32 g/dL (32-36); MEAN CORPUSCULAR VOLUME 94 fL (80-99); MONOCYTES # (AUTO) 0.3 10^3/uL (0.0-1.0); MONOCYTES % (AUTO) 5 % (0-12); NEUTROPHILS # (AUTO) 4.8 10^3/uL (1.8-7.8); NEUTROPHILS % (AUTO) 65 % (42-75); PLATELET COUNT 197 10^3/uL (130-400); WHITE BLOOD COUNT 7.5 10^3/uL (4.3-11.0)
[2020-08-18 13:18] LABS: ALANINE AMINOTRANSFERASE 11 U/L (0-55); ALBUMIN 3.8 GM/DL (3.2-4.5); ALKALINE PHOSPHATASE 39 U/L (40-136); BILIRUBIN,TOTAL 0.3 MG/DL (0.1-1.0); BUN/CREATININE RATIO 15; CALCIUM 8.4 MG/DL (8.5-10.1); CARBON DIOXIDE 25 MMOL/L (21-32); CHLORIDE 107 MMOL/L (98-107); CREATININE SERUM 0.84 MG/DL (0.60-1.30); GFR ESTIMATED > 60; GLUCOSE 117 MG/DL (70-105); POTASSIUM 3.8 MMOL/L (3.6-5.0); SODIUM 141 MMOL/L (135-145); TOTAL PROTEIN 6.7 GM/DL (6.4-8.2)
[2020-10-07 13:10] LABS: BASOPHILS # (AUTO) 0.1 10^3/uL (0.0-0.1); BASOPHILS % (AUTO) 1 % (0-10); EOSINOPHILS # (AUTO) 0.1 10^3/uL (0.0-0.3); EOSINOPHILS % (AUTO) 1 % (0-10); HEMATOCRIT 40 % (35-52); HEMOGLOBIN 13.2 g/dL (11.5-16.0); LYMPHOCYTES # (AUTO) 2.5 10^3/uL (1.0-4.0); LYMPHOCYTES % (AUTO) 32 % (12-44); MEAN CORPUSCULAR HEMOGLOBIN 30 pg (25-34); MEAN CORPUSCULAR HGB CONC 33 g/dL (32-36); MEAN CORPUSCULAR VOLUME 93 fL (80-99); MEAN PLATELET VOLUME 9.8 fL (9.0-12.2); MONOCYTES # (AUTO) 0.4 10^3/uL (0.0-1.0); MONOCYTES % (AUTO) 6 % (0-12); NEUTROPHILS # (AUTO) 4.7 10^3/uL (1.8-7.8); NEUTROPHILS % (AUTO) 60 % (42-75); PLATELET COUNT 187 10^3/uL (130-400); WHITE BLOOD COUNT 7.9 10^3/uL (4.3-11.0)
[2020-10-07 13:25] LABS: ALANINE AMINOTRANSFERASE 12 U/L (0-55); ALKALINE PHOSPHATASE 50 U/L (40-136); BILIRUBIN,TOTAL 0.4 MG/DL (0.1-1.0); BUN/CREATININE RATIO 21; CALCIUM 8.7 MG/DL (8.5-10.1); CARBON DIOXIDE 27 MMOL/L (21-32); CHLORIDE 104 MMOL/L (98-107); CREATININE SERUM 0.84 MG/DL (0.60-1.30); GFR ESTIMATED > 60; GLUCOSE 96 MG/DL (70-105); POTASSIUM 3.9 MMOL/L (3.6-5.0); SODIUM 136 MMOL/L (135-145)
[~2020-10-20 08:16] MED LIST changes: +HYDR-4226 PO
== END 2020-11-01 10:48 | disposition home or self-care (01) ==
LOC: ONC 08:16
PROVIDERS: ATTEND Internal Medicine Hematology & Oncology
DX: C50.511 Malignant neoplasm of lower-outer quadrant of right female breast (principal); M79.7 Fibromyalgia; M19.90 Unspecified osteoarthritis, unspecified site; E27.8 Other specified disorders of adrenal gland; I25.10 Atherosclerotic heart disease of native coronary artery without angina pectoris; Z90.49 Acquired absence of other specified parts of digestive tract; Z96.652 Presence of left artificial knee joint; Z96.641 Presence of right artificial hip joint; Z78.0 Asymptomatic menopausal state; Z98.51 Tubal ligation status; Z98.890 Other specified postprocedural states; Z80.3 Family history of malignant neoplasm of breast; Z80.1 Family history of malignant neoplasm of trachea, bronchus and lung
CPT/HCPCS: 80053; 85025; G0463; 77290; 77295; 77300; 77334; 99204; 99213; 99214

== ENCOUNTER 2021-01-13 13:31 | Outpatient (RCR) | payer MEDICARE, OTHER ==
[2020-12-16 13:20] LABS: BASOPHILS # (AUTO) 0.1 10^3/uL (0.0-0.1); BASOPHILS % (AUTO) 1 % (0-10); EOSINOPHILS # (AUTO) 0.1 10^3/uL (0.0-0.3); EOSINOPHILS % (AUTO) 1 % (0-10); HEMATOCRIT 40 % (35-52); LYMPHOCYTES # (AUTO) 1.5 10^3/uL (1.0-4.0); LYMPHOCYTES % (AUTO) 23 % (12-44); MEAN CORPUSCULAR HEMOGLOBIN 30 pg (25-34); MEAN CORPUSCULAR HGB CONC 32 g/dL (32-36); MEAN CORPUSCULAR VOLUME 93 fL (80-99); MEAN PLATELET VOLUME 9.3 fL (9.0-12.2); MONOCYTES # (AUTO) 0.4 10^3/uL (0.0-1.0); MONOCYTES % (AUTO) 6 % (0-12); NEUTROPHILS # (AUTO) 4.4 10^3/uL (1.8-7.8); NEUTROPHILS % (AUTO) 68 % (42-75); PLATELET COUNT 201 10^3/uL (130-400); WHITE BLOOD COUNT 6.5 10^3/uL (4.3-11.0)
[2020-12-16 13:40] LABS: ALANINE AMINOTRANSFERASE 13 U/L (0-55); ALBUMIN 3.8 GM/DL (3.2-4.5); ALKALINE PHOSPHATASE 54 U/L (40-136); BILIRUBIN,TOTAL 0.3 MG/DL (0.1-1.0); BUN/CREATININE RATIO 18; CALCIUM 8.9 MG/DL (8.5-10.1); CARBON DIOXIDE 24 MMOL/L (21-32); CHLORIDE 108 MMOL/L (98-107); CREATININE SERUM 0.83 MG/DL (0.60-1.30); GFR ESTIMATED > 60; GLUCOSE 94 MG/DL (70-105); POTASSIUM 4.2 MMOL/L (3.6-5.0); SODIUM 141 MMOL/L (135-145); TOTAL PROTEIN 6.8 GM/DL (6.4-8.2)
== END 2021-01-30 | disposition home or self-care (01) ==
LOC: ONC 13:31
PROVIDERS: ATTEND Internal Medicine Hematology & Oncology
DX: C50.511 Malignant neoplasm of lower-outer quadrant of right female breast (principal); C50.011 Malignant neoplasm of nipple and areola, right female breast; M79.7 Fibromyalgia; M19.90 Unspecified osteoarthritis, unspecified site; I25.10 Atherosclerotic heart disease of native coronary artery without angina pectoris; E27.8 Other specified disorders of adrenal gland; Z90.49 Acquired absence of other specified parts of digestive tract; Z96.652 Presence of left artificial knee joint; Z96.641 Presence of right artificial hip joint; Z78.0 Asymptomatic menopausal state; Z98.51 Tubal ligation status; Z98.890 Other specified postprocedural states; Z80.3 Family history of malignant neoplasm of breast; Z80.1 Family history of malignant neoplasm of trachea, bronchus and lung
CPT/HCPCS: 77307; 77334; 77336; 77417; 80053; 85025; 99213

== ENCOUNTER → 2021-05-10 | Outpatient (CLI) | payer MEDICARE, OTHER ==
--- NOTE | 2021-05-10 14:24 | Diagnostic Imaging Report ---
INDICATION: 2-D and 3-D digital screening with CAD. COMPARED: 08/2020, 03/2020, 02/2019 and 02/2018 FINDINGS: The parenchymal pattern is heterogeneously dense which can limit mammographic sensitivity. Some postoperative distortion in the lateral aspect of the mid to posterior 3rd of the right breast. There are scattered benign type calcifications unchanged. No evidence of mass. IMPRESSION: Postsurgical distortion on the right stable benign type calcifications, no suspicious finding. BI-RADS Category 2 ACR BI-RADS Category 2: Benign findings. Result letter will be mailed to the patient. Note: At least 10% of breast cancer is not imaged by mammography. Dictated by: Dictated on workstation # [id number]
== END ==
LOC: RAD 10:56
PROVIDERS: ATTEND Internal Medicine Hematology & Oncology
DX: Z12.31 Encounter for screening mammogram for malignant neoplasm of breast (principal); Z85.3 Personal history of malignant neoplasm of breast
CPT/HCPCS: 77063; 77067

== ENCOUNTER → 2021-06-02 | Outpatient (CLI) | payer MEDICARE, OTHER ==
[2021-06-02 14:04] LABS: BASOPHILS % (AUTO) 1 % (0-10); EOSINOPHILS # (AUTO) 0.1 10^3/uL (0.0-0.3); EOSINOPHILS % (AUTO) 2 % (0-10); HEMATOCRIT 39 % (35-52); HEMOGLOBIN 12.8 g/dL (11.5-16.0); LYMPHOCYTES # (AUTO) 1.7 10^3/uL (1.0-4.0); LYMPHOCYTES % (AUTO) 30 % (12-44); MEAN CORPUSCULAR HEMOGLOBIN 31 pg (25-34); MEAN CORPUSCULAR HGB CONC 33 g/dL (32-36); MEAN CORPUSCULAR VOLUME 94 fL (80-99); MEAN PLATELET VOLUME 9.3 fL (9.0-12.2); MONOCYTES # (AUTO) 0.4 10^3/uL (0.0-1.0); MONOCYTES % (AUTO) 8 % (0-12); NEUTROPHILS # (AUTO) 3.3 10^3/uL (1.8-7.8); NEUTROPHILS % (AUTO) 59 % (42-75); PLATELET COUNT 190 10^3/uL (130-400); WHITE BLOOD COUNT 5.5 10^3/uL (4.3-11.0)
[2021-06-02 14:25] LABS: ALBUMIN 3.8 GM/DL (3.2-4.5); BILIRUBIN,TOTAL 0.3 MG/DL (0.1-1.0); CALCIUM 9.1 MG/DL (8.5-10.1); CREATININE SERUM 0.9 MG/DL (0.60-1.30); TOTAL PROTEIN 6.9 GM/DL (6.4-8.2)
== END ==
LOC: EDSTATUS 01-31 09:21 → ONC 13:59
PROVIDERS: ATTEND Internal Medicine Hematology & Oncology
DX: C50.511 Malignant neoplasm of lower-outer quadrant of right female breast (principal); M15.9 Polyosteoarthritis, unspecified; I25.10 Atherosclerotic heart disease of native coronary artery without angina pectoris; E78.5 Hyperlipidemia, unspecified; E66.9 Obesity, unspecified; Z90.11 Acquired absence of right breast and nipple; Z96.641 Presence of right artificial hip joint; Z96.652 Presence of left artificial knee joint; Z78.0 Asymptomatic menopausal state
CPT/HCPCS: 80053; 85025; G0463; 99213

== ENCOUNTER → 2022-03-13 | Outpatient (CLI) | payer MEDICARE, OTHER ==
[~2022-03-13] MED LIST changes: -MAGN250T2 PO; +MAGN250T31 PO
== END ==
LOC: CARD 09:34
PROVIDERS: ATTEND Internal Medicine Cardiovascular Disease
DX: I35.1 Nonrheumatic aortic (valve) insufficiency (principal); I10 Essential (primary) hypertension
CPT/HCPCS: 93306

== ENCOUNTER → 2022-04-12 | Outpatient (CLI) | payer MEDICARE, OTHER ==
[~2022-04-12] MED LIST changes: +BARIUM for suspension 96% w/w (Vanilla Silq Medium Density) PO ONE; +BARIUM for suspension 98% w/w (Vanilla Silq High Density) PO ONE
--- NOTE | 2022-04-12 11:23 | Diagnostic Imaging Report ---
Indication: Difficulty swallowing. The patient ingested effervescent crystals as well as thin and thick barium and imaging over the esophagus was performed in multiple obliquities. A total of 42 seconds of fluoroscopic time was utilized. Preliminary radiograph of the chest is unremarkable. The esophagus has a smooth contour. No mass or stricture is identified. No gastroesophageal reflux or hiatal hernia was demonstrated. IMPRESSION: Unremarkable esophagram. Dictated by: Dictated on workstation # [id number]
== END ==
LOC: RAD 09:45
PROVIDERS: ATTEND Surgery
DX: R13.10 Dysphagia, unspecified (principal)
CPT/HCPCS: 74220

== ENCOUNTER → 2022-05-12 | Outpatient (CLI) | payer MEDICARE, OTHER ==
[~2022-05-12] MED LIST changes: -BARIUM for suspension 96% w/w (Vanilla Silq Medium Density) PO ONE; -BARIUM for suspension 98% w/w (Vanilla Silq High Density) PO ONE
--- NOTE | 2022-05-12 12:53 | Diagnostic Imaging Report ---
INDICATION: Routine screening. Comparison is made with prior mammogram 05/10/2021 and 03/29/2020. 2-D and 3-D bilateral screening mammography was performed with CAD. Both breasts are heterogeneously dense, limiting the sensitivity of mammography. Post therapeutic changes in the right breast appear stable. No discrete mass is identified. There are benign calcifications scattered throughout both breasts. No malignant-appearing microcalcifications are seen. Axillae are unremarkable. IMPRESSION: No mammographic features suspicious for malignancy are identified. ACR BI-RADS Category 2: Benign findings. Result letter will be mailed to the patient. Note: At least 10% of breast cancer is not imaged by mammography. BI-RADS Category 2 Dictated by: Dictated on workstation # [id number]
== END ==
LOC: RAD 10:30
PROVIDERS: ATTEND Internal Medicine Hematology & Oncology
DX: Z12.31 Encounter for screening mammogram for malignant neoplasm of breast (principal); Z85.3 Personal history of malignant neoplasm of breast
CPT/HCPCS: 77063; 77067

== ENCOUNTER → 2022-06-07 | Outpatient (CLI) | payer MEDICARE, OTHER ==
[2022-06-07 13:44] LABS: BASOPHILS # (AUTO) 0.1 10^3/uL (0.0-0.1); BASOPHILS % (AUTO) 1 % (0-10); EOSINOPHILS # (AUTO) 0.1 10^3/uL (0.0-0.3); EOSINOPHILS % (AUTO) 1 % (0-10); HEMATOCRIT 40 % (35-52); HEMOGLOBIN 13.5 g/dL (11.5-16.0); LYMPHOCYTES % (AUTO) 27 % (12-44); MEAN CORPUSCULAR HEMOGLOBIN 31 pg (25-34); MEAN CORPUSCULAR HGB CONC 34 g/dL (32-36); MEAN CORPUSCULAR VOLUME 90 fL (80-99); MEAN PLATELET VOLUME 9.3 fL (9.0-12.2); MONOCYTES # (AUTO) 0.4 10^3/uL (0.0-1.0); MONOCYTES % (AUTO) 6 % (0-12); NEUTROPHILS # (AUTO) 4.8 10^3/uL (1.8-7.8); NEUTROPHILS % (AUTO) 65 % (42-75); PLATELET COUNT 210 10^3/uL (130-400); WHITE BLOOD COUNT 7.4 10^3/uL (4.3-11.0)
[2022-06-07 14:04] LABS: BILIRUBIN,TOTAL 0.3 MG/DL (0.1-1.0); CALCIUM 9.3 MG/DL (8.5-10.1); CREATININE SERUM 1.1 MG/DL (0.60-1.30)
== END ==
LOC: ONC 13:12
PROVIDERS: ATTEND Internal Medicine Hematology & Oncology
DX: C50.511 Malignant neoplasm of lower-outer quadrant of right female breast (principal); Z96.641 Presence of right artificial hip joint; Z96.652 Presence of left artificial knee joint; Z90.49 Acquired absence of other specified parts of digestive tract; E78.5 Hyperlipidemia, unspecified; E66.9 Obesity, unspecified
CPT/HCPCS: 36415; 80053; 85025

== ENCOUNTER 2022-11-09 15:51 | Emergency (ER) | payer MEDICARE, OTHER ==
[~2022-11-09] VITALS: Ht 168 cm; Wt 95.0 kg
--- NOTE | 2022-11-09 16:12 | ED General ---
General Chief Complaint: Neurological Problems Nursing Triage Note: Patient presents to ER by wheelchair stating [facility] sent her over for low platelets. Pt had hip done 4 months ago. Bleeding in gums for the past couple weeks. Pounding in chest and shortness of air. Patient denies being on blood thinners. Source of Information: Patient, Other (clinic notes/labs) Exam Limitations: No Limitations History of Present Illness Date Seen by Provider: Nov 09, 2022 Time Seen by Provider: 15:56 Initial Comments Patient is a 72-year-old female who presents to the emergency room with a chief complaint of low platelets. She relates that she has been getting progressively short of breath over several weeks. She feels generally profoundly weak. She has experienced bleeding gums for the last several weeks as well. She finally got to a point today that she went to the urgent care clinic where they did blood work, called her 30 minutes prior to arrival of this visit and advised her to come to the emergency department. She has a history of breast cancer, recently diagnosed as "cancer free" for 1 year in May 2022. She is not on blood thinners. She had a hip replacement done about 4 months ago. She was on aspirin only. She denies any recent changes in medications. She is not on tamoxifen as she has a history of superficial venous thrombosis. She denies significant, unusual leg swelling or calf pain. No chest pain. No abdominal pain nausea vomiting or diarrhea. She denies black or bloody stools that she is aware of. She has over the last 24 hours developed urinary frequency. All other review of systems reviewed and negative except as stated Allergies and Home Medications Allergies Coded Allergies: latex (Verified Allergy, Intermediate, RASH, 09/09/20) Sulfa (Sulfonamide Antibiotics) (Verified Allergy, Unknown, 09/09/20) codeine (Verified Allergy, Unknown, 09/09/20) erythromycin base (Verified Allergy, Unknown, 09/09/20) Patient Home Medication List Home Medication List Reviewed: Yes Aspirin (Aspirin) 81 Mg Tab.chew, 81 MG PO DAILY, (Reported) Entered as Reported by: BIBIANA BERMUDEZ on 09/03/20 1446 Cholecalciferol (Vitamin D3) (Vitamin D3) 50 Mcg Tablet, 50 MCG PO DAILY, (Reported) Entered as Reported by: BIBIANA BERMUDEZ on 09/03/20 1446 Hydrocodone/Acetaminophen (Hydrocodone/Acetaminophen 5 MG/325 MG TAB) 1 Each Tablet, 1 TAB PO Q4-6HR Prescribed by: SIS WEI on 09/09/20 1251 Lorazepam (Ativan) 1 Mg Tablet, 2 MG SL HS, (Reported) Entered as Reported by: BIBIANA BERMUDEZ on 09/03/20 1446 Losartan Potassium (Losartan Potassium) 25 Mg Tablet, 25 MG PO DAILY, (Reported) Entered as Reported by: BIBIANA BERMUDEZ on 09/03/20 1446 Magnesium (Magnesium) 250 Mg Tablet, 250 MG PO DAILY, (Reported) Entered as Reported by: BIBIANA BERMUDEZ on 09/03/20 1446 Multivitamin (Multivitamin) 1 Each Tablet, 1 EACH PO DAILY, (Reported) Entered as Reported by: BIBIANA BERMUDEZ on 09/03/20 144 Tramadol HCl (Tramadol HCl) 50 Mg Tablet, 50 MG PO DAILY, (Reported) Entered as Reported by: BIBIANA BERMUDEZ on 09/03/20 1446 Review of Systems Review of Systems Constitutional: see HPI EENTM: other (Complains of bleeding down) Respiratory: short of breath Cardiovascular: no symptoms reported Gastrointestinal: no symptoms reported Genitourinary: frequency : No Musculoskeletal: no symptoms reported Skin: no symptoms reported Psychiatric/Neurological: Anxiety All Other Systems Reviewed Negative Unless Noted: Yes Past Olcbkho-Maenqn-Dwkvwu Hx Patient Social History Tobacco Use?: No Substance use?: No Alcohol Use?: No Immunizations Up To Date COVID19 Vaccine Can Doffer: J&J Seasonal Allergies Seasonal Allergies: No Past Medical History Surgeries: Yes (LEFT KNEE REPLACEMENT, TOTAL RIGHT HIP, colon resection) Gallbladder Respiratory: No Cardiac: Yes (Cardiac catheter 2013 with 30 percent stenosis of RCA) Coronary Artery Disease, Hypertension Neurological: Yes Stroke Reproductive Disorders: No Female Reproductive Disorders: Denies Sexually Transmitted Disease: No HIV/AIDS: No Genitourinary: No Gastrointestinal: Yes Diverticulosis Musculoskeletal: Yes (NECK PAIN) Degenerate Disk Disease, Osteoporosis, Arthritis, Fibromyalgia Endocrine: No HEENT: Yes Cataract Loss of Vision: Bilateral Hearing Impairment: Denies Cancer: Yes Breast Psychosocial: No Integumentary: No Blood Disorders: No Adverse Reaction/Blood Tranf: No Family Medical History Heart Disease, Cancer Physical Exam Vital Signs Vital Signs - First Documented 11/09/22 15:54 Temp 37.7 Pulse 92 Resp 22 B/P (MAP) 169/82 (111) Pulse Ox 96 O2 Delivery Room Air Capillary Refill : Less Than 3 Seconds Height, Weight, BMI Height: 5'6" Weight: 198lbs. 0.0oz. [id number]; 33.00 BMI Method:Stated General Appearance: No Apparent Distress, WD/WN Eyes: Bilateral Eye Normal Inspection HEENT: PERRL/EOMI, Pharynx Normal, Moist Mucous Membranes (no active bleeding from the gums) Respiratory: Lungs Clear, Normal Breath Sounds, No Accessory Muscle Use, No Respiratory Distress Cardiovascular: Regular Rate, Rhythm, Normal Peripheral Pulses Gastrointestinal: Non Tender, Soft Extremity: Normal Capillary Refill, Normal Range of Motion, Pedal Edema Neurologic/Psychiatric: Alert, Oriented x3, No Motor/Sensory Deficits, Normal Mood/Affect, chief technician x ray II-XII Norm as Tested Skin: Normal Color, Warm/Dry, Other (Petechial rash noted to the bilateral lower extremities) Progress/Results/Core Measures Suspected Sepsis SIRS Temperature: Pulse: 92 Respiratory Rate: 22 Laboratory Tests 11/09/22 16:00: White Blood Count 1.9L Blood Pressure 169 /82 Mean: 111 Laboratory Tests 11/09/22 16:00: Creatinine 0.77, INR Comment 1.0, Platelet Count 20*L, Total Bilirubin 0.4 Results/Orders Lab Results Laboratory Tests Test 11/09/22 16:00 11/09/22 16:35 Range/Units White Blood Count 1.9 L 4.3-11.0 10^3/uL Red Blood Count 3.37 L 3.80-5.11 10^6/uL Hemoglobin 10.5 L 11.5-16.0 g/dL Hematocrit 30 L 35-52 % Mean Corpuscular Volume 90 80-99 fL Mean Corpuscular Hemoglobin 31 25-34 pg Mean Corpuscular Hemoglobin Concent 35 32-36 g/dL Red Cell Distribution Width 15.9 H 10.0-14.5 % Platelet Count 20 *L 130-400 10^3/uL Mean Platelet Volume 10.3 9.0-12.2 fL Immature Granulocyte % (Auto) 1 % Neutrophils (%) (Auto) 9 L 42-75 % Lymphocytes (%) (Auto) 76 H 12-44 % Monocytes (%) (Auto) 14 H 0-12 % Eosinophils (%) (Auto) 0 0-10 % Basophils (%) (Auto) 0 0-10 % Neutrophils # (Auto) 0.2 L 1.8-7.8 10^3/uL Lymphocytes # (Auto) 1.5 1.0-4.0 10^3/uL Monocytes # (Auto) 0.3 0.0-1.0 10^3/uL Eosinophils # (Auto) 0.0 0.0-0.3 10^3/uL Basophils # (Auto) 0.0 0.0-0.1 10^3/uL Immature Granulocyte # (Auto) 0.0 0.0-0.1 10^3/uL Percent Immature Platelet Fraction 1.5 0.0-7.6 % Prothrombin Time 13.5 12.2-14.7 SEC INR Comment 1.0 0.8-1.4 Activated Partial Thromboplast Time 41 H 24-35 SEC Sodium Level 140 135-145 MMOL/L Potassium Level 3.8 3.6-5.0 MMOL/L Chloride Level 107 98-107 MMOL/L Carbon Dioxide Level 22 21-32 MMOL/L Anion Gap 11 5-14 MMOL/L Blood Urea Nitrogen 13 7-18 MG/DL Creatinine 0.77 0.60-1.30 MG/DL Estimat Glomerular Filtration Rate 81 BUN/Creatinine Ratio 17 Glucose Level 95 70-105 MG/DL Calcium Level 9.1 8.5-10.1 MG/DL Corrected Calcium 9.2 8.5-10.1 MG/DL Total Bilirubin 0.4 0.1-1.0 MG/DL Aspartate Amino Transf (AST/SGOT) 20 5-34 U/L Alanine Aminotransferase (ALT/SGPT) 14 0-55 U/L Alkaline Phosphatase 49 40-136 U/L Total Protein 7.1 6.4-8.2 GM/DL Albumin 3.9 3.2-4.5 GM/DL Urine Color YELLOW Urine Clarity CLEAR Urine pH 6.5 5-9 Urine Specific [place] 1.015 L 1.016-1.022 Urine Protein NEGATIVE NEGATIVE Urine Glucose (UA) NEGATIVE NEGATIVE Urine Ketones TRACE H NEGATIVE Urine Nitrite NEGATIVE NEGATIVE Urine Bilirubin NEGATIVE NEGATIVE Urine Urobilinogen 0.2 < = 1.0 MG/DL Urine Leukocyte Esterase TRACE H NEGATIVE Urine RBC (Auto) 2+ H NEGATIVE Urine RBC RARE /HPF Urine WBC 2-5 /HPF Urine Squamous Epithelial Cells 2-5 /HPF Urine Crystals NONE /LPF Urine Bacteria TRACE /HPF Urine Casts NONE /LPF Urine Mucus NEGATIVE /LPF Urine Culture Indicated NO My Orders Orders - ÓSCAR SIGNH MD Ed Iv/Invasive Line Start (11/09/22 16:17) Cbc With Automated Diff (11/09/22 16:17) Comprehensive Metabolic Panel (11/09/22 16:17) Ua Culture If Indicated (11/09/22 16:17) Protime With Inr (11/09/22 16:17) Partial Thromboplastin Time (11/09/22 16:17) Type And Screen (11/09/22 16:17) Chest 1 View, Ap/Pa Only (11/09/22 16:23) Pantoprazole Injection (Protonix Injecti (11/09/22 16:30) Manual Differential (11/09/22 16:00) Methylprednisolone Sod Succ (Solu-Medrol (11/09/22 17:00) Medications Given in ED Current Medications Medications Dose Ordered Sig/Maria Antonia Route Start Time Stop Time Status Last Admin Dose Admin Methylprednisolone Sodium Succinate 125 mg ONCE ONCE IVP 11/09/22 17:00 11/09/22 17:01 DC 11/09/22 17:00 125 MG Pantoprazole 40 mg ONCE ONCE IV 11/09/22 16:30 11/09/22 16:31 DC 11/09/22 17:00 40 MG Vital Signs/I&O 11/09/22 15:54 Temp 37.7 Pulse 92 Resp 22 B/P (MAP) 169/82 (111) Pulse Ox 96 O2 Delivery Room Air Capillary Refill : Less Than 3 Seconds Blood Pressure Mean: 111 Progress Note : Time: 16:24 Progress Note Case discussed with Dr. Solis; with my history and reported physical exam of the patient she does not believe that the patient warrants acute inpatient admission. She did recommend that I inquire about any recent vaccine history. She wanted to make sure that the patient had a normal CBC prior to her hip surgery. She did advise chest x-ray as well as starting steroids and a PPI. She would like to see her next week in clinic. Her recommendation was prednisone 60 mg a day. I am going to give her 125 mg of Solu-Medrol prior to discharge from the emergency department. we are currently pending basic laboratory studies including CBC, Chem-12, UA, coagulation profile PT/PTT/INR and type and screen. 1712 Patient noted to be thrombocytopenic with a platelet count of 20,000. Slightly anemic with a hemoglobin of 10. Low white count at 2. Serum chemistry normal, chest x-ray reviewed and normal. Urinalysis shows microscopic hematuria, coagulation studies within normal limits. Patient has been informed of the plan of care. We will send her with the Protonix and prednisone. Return precautions provided, if she has any bleeding whatsoever she is to return immediately to the emergency department. Strict care on movement not to trip fall or otherwise sustained an injury. She verbalized understanding. All questions are sought a nd answered. ECG Initial ECG Impression Date: Nov 09, 2022 Initial ECG Impression Time: 16:04 Initial ECG Rate: 81 Initial ECG Rhythm: Normal Sinus Initial ECG Intervals: Normal Initial ECG Impression: Normal Departure Impression Primary Impression: Thrombocytopenia Additional Impression: Dyspnea Qualified Codes: R06.00 - Dyspnea, unspecified Disposition: HOME, SELF-CARE Condition: Stable Departure-Patient Inst. Decision time for Depature: 17:14 Referrals: NIRAV SOLIS MD Patient Instructions: Immune Thrombocytopenia (ITP) Add. Discharge Instructions: Be very careful as you are up and moving around, walking that you do not trip, fall sustained an injury or hit your head. Do not use a toothbrush to brush her teeth. I would recommend your finger covered by a thin washcloth with toothpaste on it to gently rub your teeth. You do not want to stimulate any bleeding from your gums. We are starting you on prednisone daily to help stimulate your bone marrow to make more platelets. You will take 60 mg daily. I am also starting you on Protonix which will protect your stomach as prednisone can be upsetting to the stomach. Take this nightly, 40 mg. If you develop any bleeding whatsoever, anywhere please come back to the emergency department for reevaluation. Please call Dr. Rose's office tomorrow for a follow-up appointment early next week. Scripts Pantoprazole Sodium (Protonix) 40 Mg Tablet. 40 MG PO DAILY for 30 Days, #30 TAB Prov: ÓSCAR SINGH MD 11/09/22 Prednisone (Prednisone) 20 Mg Tab 60 MG PO DAILY, #21 TAB Prov: ÓSCAR SINGH MD 11/09/22 Copy Copies To 1: NIRAV SOLIS MD, KATHRYN M MD Nov 09, 2022 16:12
[2022-11-09] MEDS ORDERED: predniSONE 20 MG TAB PO STA (16:26)
[2022-11-09 16:30] LABS: BASOPHILS % (AUTO) 0 % (0-10); HEMOGLOBIN 10.5 g/dL (11.5-16.0)
[2022-11-09 16:32] LABS: EOSINOPHILS % (AUTO) 0 % (0-10); HEMATOCRIT 30 % (35-52); LYMPHOCYTES # (AUTO) 1.5 10^3/uL (1.0-4.0); LYMPHOCYTES % (AUTO) 76 % (12-44); MEAN CORPUSCULAR HEMOGLOBIN 31 pg (25-34); MEAN CORPUSCULAR HGB CONC 35 g/dL (32-36); MEAN CORPUSCULAR VOLUME 90 fL (80-99); MEAN PLATELET VOLUME 10.3 fL (9.0-12.2); MONOCYTES # (AUTO) 0.3 10^3/uL (0.0-1.0); MONOCYTES % (AUTO) 14 % (0-12); NEUTROPHILS # (AUTO) 0.2 10^3/uL (1.8-7.8); NEUTROPHILS % (AUTO) 9 % (42-75); WHITE BLOOD COUNT 1.9 10^3/uL (4.3-11.0)
[2022-11-09 16:34] LABS: ALBUMIN 3.9 GM/DL (3.2-4.5); POTASSIUM 3.8 MMOL/L (3.6-5.0)
[2022-11-09 16:35] LABS: CALCIUM 9.1 MG/DL (8.5-10.1); PLATELET COUNT 20 10^3/uL (130-400)
[2022-11-09 16:37] LABS: TOTAL PROTEIN 7.1 GM/DL (6.4-8.2)
[2022-11-09 16:38] LABS: BILIRUBIN,TOTAL 0.4 MG/DL (0.1-1.0)
[2022-11-09 16:40] LABS: CREATININE SERUM 0.77 MG/DL (0.60-1.30)
[2022-11-09 16:42] LABS: BILIRUBIN,URINE NEGATIVE (NEGATIVE); CLARITY,URINE CLEAR; COLOR,URINE YELLOW; GLUCOSE, URINE (UA) NEGATIVE (NEGATIVE); KETONES,URINE TRACE (NEGATIVE); LEUKOCYTE ESTERASE ,URINE TRACE (NEGATIVE); NITRITE,URINE NEGATIVE (NEGATIVE); PH,URINE 6.5 (5-9); PROTEIN,URINE NEGATIVE (NEGATIVE)
[2022-11-09 16:49] LABS: BACTERIA,URINE TRACE /HPF; RBC,URINE RARE /HPF
[2022-11-09 16:50] LABS: PROTHROMBIN TIME PATIENT 13.5 SEC (12.2-14.7)
[2022-11-09] MEDS: PANTOPRAZOLE 40 MG (PROTONIX) VIAL IV ONE (17:00)
[2022-11-09] MEDS: methylPREDNISolone 125 MG (Solu-MEDROL) VIAL IVP ONE (17:00)
--- NOTE | 2022-11-09 17:02 | Diagnostic Imaging Report ---
Indication: Chest pain and shortness of breath Portable chest 4:40 PM Heart size and pulmonary vascularity are normal. Lungs are clear. There are no effusions or pneumothoraces. IMPRESSION: No acute abnormalities in the chest Dictated by: Dictated on workstation # [id number]
[2022-11-09] MEDS ORDERED: PANT40TA2 PO (17:19)
[2022-11-09] MEDS ORDERED: PRD20T PO (17:19)
[2022-11-09 17:35] VITALS: BP 179/88
[2022-11-09 17:58] LABS: ATYPICAL LYMPHOCYTES 9 %; BLAST CELLS 1 %; LYMPHOCYTES % (MANUAL) 69 %; MONOCYTES % (MANUAL) 11 %; NEUTROPHILS % (MANUAL) 2 %; REACTIVE LYMPHOCYTES 8 %
[2022-11-09 17:59] LABS: RBC MORPH NORMAL
== END 2022-11-09 17:36 | disposition home or self-care (01) ==
LOC: EDUNIT# 15:51 → ER 15:52
DX: D69.6 Thrombocytopenia, unspecified (principal); R06.00 Dyspnea, unspecified; D64.9 Anemia, unspecified; R31.9 Hematuria, unspecified; D72.819 Decreased white blood cell count, unspecified; Z91.040 Latex allergy status; Z79.82 Long term (current) use of aspirin
CPT/HCPCS: 36415; 71045; 80053; 81000; 85007; 85027; 85610; 85730; 86850; 86900; 86901; 93005

== ENCOUNTER → 2022-11-13 | Outpatient (CLI) | payer MEDICARE, OTHER ==
[~2022-11-13] MED LIST changes: +PANT40TA2 PO; +PRD20T PO
[2022-11-13 14:00] LABS: EOSINOPHILS % (AUTO) 0 % (0-10); HEMOGLOBIN 10.3 g/dL (11.5-16.0)
[2022-11-13 14:01] LABS: BASOPHILS % (AUTO) 0 % (0-10); HEMATOCRIT 31 % (35-52); LYMPHOCYTES # (AUTO) 5.3 10^3/uL (1.0-4.0); LYMPHOCYTES % (AUTO) 33 % (12-44); MEAN CORPUSCULAR HEMOGLOBIN 31 pg (25-34); MEAN CORPUSCULAR HGB CONC 34 g/dL (32-36); MEAN CORPUSCULAR VOLUME 91 fL (80-99); MEAN PLATELET VOLUME 10.6 fL (9.0-12.2); MONOCYTES # (AUTO) 7.1 10^3/uL (0.0-1.0); MONOCYTES % (AUTO) 45 % (0-12); NEUTROPHILS # (AUTO) 2.3 10^3/uL (1.8-7.8); NEUTROPHILS % (AUTO) 14 % (42-75)
[2022-11-13 14:12] LABS: PLATELET COUNT 18 10^3/uL (130-400)
[2022-11-13 15:47] LABS: NEUTROPHILS % (MANUAL) 13 %
[2022-11-13 15:48] LABS: LYMPHOCYTES % (MANUAL) 39 %; MONOCYTES % (MANUAL) 27 %; NUCLEATED RED BLOOD CELLS 1
[2022-11-13 15:50] LABS: ATYPICAL LYMPHOCYTES 21 %
== END ==
LOC: ONC 13:13
PROVIDERS: ATTEND Internal Medicine Hematology & Oncology
DX: C50.511 Malignant neoplasm of lower-outer quadrant of right female breast (principal); D61.818 Other pancytopenia; M15.9 Polyosteoarthritis, unspecified; E78.2 Mixed hyperlipidemia; E66.9 Obesity, unspecified; Z90.11 Acquired absence of right breast and nipple; Z96.641 Presence of right artificial hip joint; Z96.652 Presence of left artificial knee joint; Z78.0 Asymptomatic menopausal state
CPT/HCPCS: 85007; 85025; 85027; G0463; 99213

== ENCOUNTER 2022-11-16 14:55 | Inpatient (IN) | payer MEDICARE, OTHER ==
[~2022-11-16] VITALS: Ht 167 cm; Wt 95.9 kg
[2022-11-16] MEDS ORDERED: CEFEPIME INJECTION 1,000 MG in NS (IVPB) 50 ML IV ONE (15:15)
[2022-11-16] MEDS ORDERED: ONDANSETRON 4 MG/2 ML (SDV) Z0FRAN IVP ONE ×2 (15:15→17:45)
[2022-11-16] MEDS ORDERED: fentaNYL INJ 100 MCG/2 ML AMP IVP ONE (15:15)
[2022-11-16] MEDS ORDERED: LACTATED RINGERS 1,000 ML IV ONE (15:15)
[2022-11-16] MEDS ORDERED: ACETAMINOPHEN 500 MG TAB (TYLENOL) PO PRN (15:15)
--- NOTE | 2022-11-16 15:19 | ED General ---
General Chief Complaint: Fever-Adult/Adol Stated Complaint: FEVER | UTI | PAIN Nursing Triage Note: PT ARRIVES TO ER VIA EMS. PT C/O FEVER ONSET 0330 TODAY, +NAUSEA, DENIES VOMITING OR DIARRHEA. PT SCHEDULED FOR A BONE MARROW BIOPSY ON SUN BY DR GARZA. Source of Information: Patient Exam Limitations: No Limitations (JESSI MAEYN APRN) History of Present Illness Date Seen by Provider: Nov 16, 2022 Time Seen by Provider: 15:10 Initial Comments Patient is a 72-year-old female who presents to the emergency department for evaluation of fever that began this morning as well as nausea and severe abdominal pain. Patient states she has also felt like she has had to urinate frequently today. T-max at home was 101. Patient has had no medications today. States she also has rectal pain intermittently. Denies any vomiting or diarrhea. Patient is currently being evaluated by hematology for some hematopoietic abnormalities. Patient states she is scheduled for bone marrow aspiration next week. (JESSI MAYEN APRN) Allergies and Home Medications Allergies Coded Allergies: latex (Verified Allergy, Intermediate, RASH, 09/09/20) Sulfa (Sulfonamide Antibiotics) (Verified Allergy, Unknown, 09/09/20) codeine (Verified Allergy, Unknown, 09/09/20) erythromycin base (Verified Allergy, Unknown, 09/09/20) Patient Home Medication List Home Medication List Reviewed: Yes (JESSI MAYEN APRN) Acetaminophen (Tylenol Extra Strength) 500 Mg Tablet, 1,000 MG PO Q8H PRN for PAIN-MILD (1-4), (Reported) Entered as Reported by: CARLOS MANUEL WISDOM on 11/17/221305 Last Action: Reviewed Celecoxib (Celecoxib) 200 Mg Capsule, 200 MG PO DAILY, (Reported) Entered as Reported by: CARLOS MANUEL WISDOM on 11/17/221305 Last Action: Reviewed Ezetimibe (Ezetimibe) 10 Mg Tablet, 10 MG PO DAILY, (Reported) Entered as Reported by: CARLOS MANUEL WISDOM on 11/17/221305 Last Action: Reviewed Lorazepam (Ativan) 1 Mg Tablet, 1.5 MG PO HS, (Reported) Entered as Reported by: CARLOS MANUEL WISDOM on 11/17/221305 Last Action: Reviewed Losartan Potassium (Losartan Potassium) 25 Mg Tablet, 25 MG PO DAILY, (Reported) Entered as Reported by: BIBIANA BERMUDEZ on 09/03/201445 Last Action: Reviewed Pantoprazole Sodium (Pantoprazole Sodium) 40 Mg Tablet.dr, 40 MG PO HS, (Reported) Entered as Reported by: CARLOS MANUEL WISDOM on 11/17/22 130 Last Action: Reviewed Prednisone (Prednisone) 20 Mg Tab, 60 MG PO DAILY, (Reported) Entered as Reported by: CARLOS MANUEL WISDOM on 11/17/22 130 Last Action: Reviewed Discontinued Medications Aspirin (Aspirin) 81 Mg Tab.chew, 81 MG PO DAILY, (Reported) Discontinued Reason: No Longer Taking Entered as Reported by: BIBIANA BERMUDEZ on 09/03/201445 Last Action: Discontinued Cholecalciferol (Vitamin D3) (Vitamin D3) 50 Mcg Tablet, 50 MCG PO DAILY, (Reported) Discontinued Reason: No Longer Taking Entered as Reported by: BIBIANA BERMUDEZ on 09/03/201445 Last Action: Discontinued Hydrocodone/Acetaminophen (Hydrocodone/Acetaminophen 5 MG/325 MG TAB) 1 Each Tablet, 1 TAB PO Q4-6HR Discontinued Reason: No Longer Taking Prescribed by: SIS WEI on 09/09/20 1251 Last Action: Discontinued Lorazepam (Ativan) 1 Mg Tablet, 2 MG SL HS, (Reported) Discontinued Reason: No Longer Taking Entered as Reported by: BIBIANA BERMUDEZ on 09/03/201445 Last Action: Discontinued Magnesium (Magnesium) 250 Mg Tablet, 250 MG PO DAILY, (Reported) Discontinued Reason: No Longer Taking Entered as Reported by: BIBIANA BERMUDEZ on 09/03/201445 Last Action: Discontinued Multivitamin (Multivitamin) 1 Each Tablet, 1 EACH PO DAILY, (Reported) Discontinued Reason: No Longer Taking Entered as Reported by: BIBIANA BERMUDEZ on 09/03/201445 Last Action: Discontinued Pantoprazole Sodium (Protonix) 40 Mg Tablet.dr, 40 MG PO DAILY Discontinued Reason: No Longer Taking Prescribed by: ÓSCAR SINGH on 11/09/221718 Last Action: Discontinued Prednisone (Prednisone) 20 Mg Tab, 60 MG PO DAILY Discontinued Reason: No Longer Taking Prescribed by: ÓSCAR SINGH on 11/09/221718 Last Action: Discontinued Tramadol HCl (Tramadol HCl) 50 Mg Tablet, 50 MG PO DAILY, (Reported) Discontinued Reason: No Longer Taking Entered as Reported by: BIBIANA BERMUDEZ on 09/03/20 6886 Last Action: Discontinued Review of Systems Review of Systems Constitutional: see HPI, fever EENTM: no symptoms reported Respiratory: no symptoms reported Cardiovascular: no symptoms reported Gastrointestinal: see HPI Genitourinary: see HPI, frequency Musculoskeletal: no symptoms reported Skin: no symptoms reported Psychiatric/Neurological: No Symptoms Reported Hematologic/Lymphatic: No Symptoms Reported Immunological/Allergic: no symptoms reported (JESSI MAYEN APRN) Past Bunfnuq-Iduhgd-Ovmhpi Hx Patient Social History Tobacco Use?: No Use of E-Cig and/or Vaping dev: No Substance use?: No Alcohol Use?: No Pt feels they are or have been: No (JESSI MAYEN APRN) Immunizations Up To Date First/Initial COVID19 Vaccinat: RECEIVED, UNK WHEN COVID19 Vaccine [employer]: UNK (JESSI MAYEN APRN) Seasonal Allergies Seasonal Allergies: No (JESSI MAYEN APRN) Past Medical History Surgeries: Yes (LEFT KNEE REPLACEMENT, TOTAL RIGHT HIP, colon resection) Gallbladder Respiratory: No Cardiac: Yes (Cardiac catheter 2013 with 30 percent stenosis of RCA) Coronary Artery Disease, Hypertension Neurological: Yes Stroke Reproductive Disorders: No Female Reproductive Disorders: Denies Sexually Transmitted Disease: No HIV/AIDS: No Genitourinary: No Gastrointestinal: Yes Diverticulosis Musculoskeletal: Yes (NECK PAIN) Degenerate Disk Disease, Osteoporosis, Arthritis, Fibromyalgia Endocrine: No HEENT: Yes Cataract Loss of Vision: Bilateral Hearing Impairment: Denies Cancer: Yes Breast Psychosocial: No Integumentary: No Blood Disorders: No Adverse Reaction/Blood Tranf: No (JESSI MAYEN APRN) Family Medical History Heart Disease, Cancer (JESSI MAYEN APRN) Physical Exam Vital Signs Vital Signs - First Documented 11/16/22 15:07 Temp 39.9 Pulse 113 Resp 22 B/P (MAP) 153/79 (103) Pulse Ox 94 O2 Delivery Room Air (RAGINI PUENTE MD) Vital Signs Capillary Refill : (JESSI MAYEN APRN) Height, Weight, BMI Height: 5'6" Weight: 198lbs. 0.0oz. 89.209630th; 34.00 BMI Method:Stated General Appearance: No Apparent Distress, WD/WN HEENT: TMs Normal, Normal ENT Inspection, Pharynx Normal Neck: Full Range of Motion, Non Tender, Supple Respiratory: Chest Non Tender, Lungs Clear, Normal Breath Sounds, No Accessory Muscle Use, No Respiratory Distress Cardiovascular: Regular Rate, Rhythm Gastrointestinal: Soft, Guarding, Tenderness Neurologic/Psychiatric: Alert, Oriented x3, No Motor/Sensory Deficits, Normal Mood/Affect Skin: Normal Color, Warm/Dry (JESSI MAYEN APRN) Focused Exam Lactic Acid Level Laboratory Tests Test 11/16/22 15:09 Lactic Acid Level 2.21 MMOL/L (0.50-2.00) *H (RAGINI PUENTE MD) Progress/Results/Core Measures Suspected Sepsis SIRS Temperature: Pulse: 113 Respiratory Rate: 22 Laboratory Tests 11/16/22 15:09: White Blood Count 33.0*H Blood Pressure 153 /79 Mean: 103 11/16/22 15:09: Lactic Acid Level 2.21*H Laboratory Tests 11/16/22 15:09: Creatinine 0.90, INR Comment 1.0, Platelet Count 15*L, Total Bilirubin 0.5 (JESSI MAYEN APRN) Results/Orders Lab Results Laboratory Tests Test 11/16/22 15:09 11/16/22 15:33 11/16/22 15:37 Range/Units White Blood Count 33.0 *H 4.3-11.0 10^3/uL Red Blood Count 3.48 L 3.80-5.11 10^6/uL Hemoglobin 10.7 L 11.5-16.0 g/dL Hematocrit 31 L 35-52 % Mean Corpuscular Volume 90 80-99 fL Mean Corpuscular Hemoglobin 31 25-34 pg Mean Corpuscular Hemoglobin Concent 34 32-36 g/dL Red Cell Distribution Width 17.5 H 10.0-14.5 % Platelet Count 15 *L 130-400 10^3/uL Mean Platelet Volume 10.3 9.0-12.2 fL Immature Granulocyte % (Auto) 19 % Neutrophils (%) (Auto) 14 L 42-75 % Lymphocytes (%) (Auto) 47 H 12-44 % Monocytes (%) (Auto) 19 H 0-12 % Eosinophils (%) (Auto) 0 0-10 % Basophils (%) (Auto) 0 0-10 % Neutrophils # (Auto) 4.5 1.8-7.8 10^3/uL Lymphocytes # (Auto) 15.5 H 1.0-4.0 10^3/uL Monocytes # (Auto) 6.4 H 0.0-1.0 10^3/uL Eosinophils # (Auto) 0.0 0.0-0.3 10^3/uL Basophils # (Auto) 0.1 0.0-0.1 10^3/uL Immature Granulocyte # (Auto) 6.4 H 0.0-0.1 10^3/uL Neutrophils % (Manual) 13 % Lymphocytes % (Manual) 56 % Monocytes % (Manual) 13 % Nucleated Red Blood Cells 1 Atypical Lymphocytes 18 % Percent Immature Platelet Fraction 2.7 0.0-7.6 % Microcytosis SLIGHT Prothrombin Time 13.7 12.2-14.7 SEC INR Comment 1.0 0.8-1.4 Activated Partial Thromboplast Time 27 24-35 SEC Sodium Level 137 135-145 MMOL/L Potassium Level 3.6 3.6-5.0 MMOL/L Chloride Level 103 98-107 MMOL/L Carbon Dioxide Level 22 21-32 MMOL/L Anion Gap 12 5-14 MMOL/L Blood Urea Nitrogen 18 7-18 MG/DL Creatinine 0.90 0.60-1.30 MG/DL Estimat Glomerular Filtration Rate 68 BUN/Creatinine Ratio 20 Glucose Level 162 H 70-105 MG/DL Lactic Acid Level 2.21 *H 0.50-2.00 MMOL/L Calcium Level 8.8 8.5-10.1 MG/DL Corrected Calcium 9.0 8.5-10.1 MG/DL Total Bilirubin 0.5 0.1-1.0 MG/DL Aspartate Amino Transf (AST/SGOT) 30 5-34 U/L Alanine Aminotransferase (ALT/SGPT) 24 0-55 U/L Alkaline Phosphatase 47 40-136 U/L Total Protein 6.7 6.4-8.2 GM/DL Albumin 3.7 3.2-4.5 GM/DL Influenza Type A (RT-PCR) Not Detected Not Detecte Influenza Type B (RT-PCR) Not Detected Not Detecte SARS-CoV-2 RNA (RT-PCR) Not Detected Not Detecte Urine Color ORANGE Urine Clarity CLEAR Urine pH 5.5 5-9 Urine Specific [place] 1.020 1.016-1.022 Urine Protein 1+ H NEGATIVE Urine Glucose (UA) NEGATIVE NEGATIVE Urine Ketones NEGATIVE NEGATIVE Urine Nitrite POSITIVE H NEGATIVE Urine Bilirubin NEGATIVE NEGATIVE Urine Urobilinogen 0.2 < = 1.0 MG/DL Urine Leukocyte Esterase NEGATIVE NEGATIVE Urine RBC (Auto) 2+ H NEGATIVE Urine RBC 5-10 H /HPF Urine WBC 2-5 /HPF Urine Squamous Epithelial Cells 2-5 /HPF Urine Crystals NONE /LPF Urine Bacteria FEW H /HPF Urine Casts NONE /LPF Urine Mucus NEGATIVE /LPF Urine Culture Indicated CULTURE PENDING (RAGINI PUENTE MD) Micro Results Microbiology 11/16/22 Urine Culture - Preliminary, Resulted Escherichia coli Mixed Bacterial Patricia See Comments 11/16/22 Blood Culture - Preliminary, Resulted Probable Clostridium Probable Coag Negative Staph 11/16/22 Blood Culture - Preliminary, Resulted Probable Clostridium (RAGINI PUENTE MD) Vital Signs/I&O 11/16/22 15:07 Temp 39.9 Pulse 113 Resp 22 B/P (MAP) 153/79 (103) Pulse Ox 94 O2 Delivery Room Air (RAGINI PUENTE MD) Vital Signs/I&O Capillary Refill : (JESSI MAYEN APRN) Blood Pressure Mean: 103 Progress Note : Progress Note Patient is nontoxic on exam. Vital signs notable for tachycardia and fever. No adventitious lung sounds or increased work of breathing noted. Patient does have some suprapubic tenderness to palpation with guarding. No significant distention or rigidity appreciated. Patient is awake alert and oriented answers questions appropriately. Orders placed for septic work-up including CBC, CMP, blood culture, urine culture, urinalysis, coagulation studies, chest x-ray. CBC notable for leukocytosis, lymphocytosis, thrombocytopenia. CMP largely unremarkable. Lactic acid is above 2. Patient was given a liter of lactated Ringer's as well as a gram of cefepime. Urinalysis was nitrite positive without significant pyuria or bacteriuria. Coagulation studies unremarkable. Head CT was obtained as patient became somewhat altered after she arrived. This was acutely negative. Patient simply returned to baseline although she did continue to say that she was in pain despite numerous doses of analgesia. CT of the abdomen pelvis obtained which is notable for ascending colon colitis. This seems the most likely source of patient's fever. I spoke with the hospitalist, Dr. Paul, who kindly agreed to admit the patient. I also consulted Dr. Harris with general surgery and Dr. Frazier with hematology per Dr. Fisher's request. Patient was updated on plan of care and understanding verbalized. In total, patient was given doses of fentanyl, morphine, and Dilaudid while in the ER. Patient states she was still in significant pain despite all of these medications. (JESSI MAYEN APRN) Departure Impression Primary Impression: Sepsis Qualified Codes: A41.9 - Sepsis, unspecified organism Additional Impressions: Colitis Leukocytosis Qualified Codes: D72.820 - Lymphocytosis (symptomatic) Thrombocytopenia Lymphocytosis Disposition: ADMITTED INPATIENT Condition: Stable Admissions Decision to Admit Reason: Admit from ER (General) Decision to Admit/Date: Nov 16, 2022 Time/Decision to Admit Time: 17:40 (JESSI MAYEN APRN) Departure-Patient Inst. Referrals: [facility] [place] ([place]/Family) Primary Care Physician PHYSICIAN ATTESTATION NOTE: I was present in the ER while LIME HIDE INSPECTOR / PA saw the patient, but I was not involved in the care, exam, or management of the patient. (RAGINI PUENTE MD) JESSI MAYEN APRN Nov 16, 2022 15:19 RAGINI PUENTE MD Nov 18, 2022 14:07
[2022-11-16 15:37] LABS: ALBUMIN 3.7 GM/DL (3.2-4.5); POTASSIUM 3.6 MMOL/L (3.6-5.0)
[2022-11-16 15:39] LABS: CALCIUM 8.8 MG/DL (8.5-10.1)
[2022-11-16 15:40] LABS: PROTHROMBIN TIME PATIENT 13.7 SEC (12.2-14.7); TOTAL PROTEIN 6.7 GM/DL (6.4-8.2)
[2022-11-16 15:41] LABS: BILIRUBIN,TOTAL 0.5 MG/DL (0.1-1.0)
[2022-11-16 15:43] LABS: CREATININE SERUM 0.9 MG/DL (0.60-1.30)
[2022-11-16 15:45] LABS: BILIRUBIN,URINE NEGATIVE (NEGATIVE); CLARITY,URINE CLEAR; COLOR,URINE ORANGE; GLUCOSE, URINE (UA) NEGATIVE (NEGATIVE); KETONES,URINE NEGATIVE (NEGATIVE); LEUKOCYTE ESTERASE ,URINE NEGATIVE (NEGATIVE); NITRITE,URINE POSITIVE (NEGATIVE); PH,URINE 5.5 (5-9); PROTEIN,URINE 1+ (NEGATIVE)
[2022-11-16 15:52] LABS: BASOPHILS # (AUTO) 0.1 10^3/uL (0.0-0.1); BASOPHILS % (AUTO) 0 % (0-10); EOSINOPHILS % (AUTO) 0 % (0-10); HEMATOCRIT 31 % (35-52); HEMOGLOBIN 10.7 g/dL (11.5-16.0); LYMPHOCYTES # (AUTO) 15.5 10^3/uL (1.0-4.0); LYMPHOCYTES % (AUTO) 47 % (12-44); MEAN CORPUSCULAR HEMOGLOBIN 31 pg (25-34); MEAN CORPUSCULAR HGB CONC 34 g/dL (32-36); MEAN CORPUSCULAR VOLUME 90 fL (80-99); MEAN PLATELET VOLUME 10.3 fL (9.0-12.2); MONOCYTES # (AUTO) 6.4 10^3/uL (0.0-1.0); MONOCYTES % (AUTO) 19 % (0-12); NEUTROPHILS # (AUTO) 4.5 10^3/uL (1.8-7.8); NEUTROPHILS % (AUTO) 14 % (42-75)
[2022-11-16 15:53] LABS: PLATELET COUNT 15 10^3/uL (130-400)
--- NOTE | 2022-11-16 15:54 | Diagnostic Imaging Report ---
INDICATION: Fever and sepsis. Frontal chest obtained at 3:36 p.m. and compared to 11/09/2022. FINDINGS: There is cardiomegaly. There is mild central vascular congestion. There is no focal infiltrate or pneumothorax or pleural fluid. IMPRESSION: Cardiomegaly with no acute process in the chest. Dictated by: Dictated on workstation # [id number]
[2022-11-16 16:02] LABS: BACTERIA,URINE FEW /HPF
--- NOTE | 2022-11-16 16:12 | Diagnostic Imaging Report ---
INDICATION: Fever and nausea and vomiting. TECHNIQUE: Multiple contiguous axial images were obtained through the brain without the use of intravenous contrast. Auto Exposure Controls were utilized during the CT exam to meet ALARA standards for radiation dose reduction. COMPARISON: Comparison made to 10/16/2016. FINDINGS: There are diffuse atrophic changes. There are mild low-density changes in deep white matter, compatible with chronic ischemic change. There is no acute hemorrhage or mass effect or midline shift. There is no subdural or epidural collection. Calvarial windows are unremarkable. IMPRESSION: Chronic findings as above with no acute intracranial abnormality. Dictated by: Dictated on workstation # [id number]
[2022-11-16 16:24] LABS: ATYPICAL LYMPHOCYTES 18 %; LYMPHOCYTES % (MANUAL) 56 %; MICROCYTOSIS SLIGHT; MONOCYTES % (MANUAL) 13 %; NEUTROPHILS % (MANUAL) 13 %; NUCLEATED RED BLOOD CELLS 1
[2022-11-16] MEDS ORDERED: IOHEXOL 350 MG/ML 100 ML (OMNIPAQUE 350) VIAL IV ONE (16:30)
[2022-11-16] MEDS ORDERED: NS 100 ML (IVPB) BAG IV ONE (16:30)
--- NOTE | 2022-11-16 17:08 | Diagnostic Imaging Report ---
EXAMINATION: CT abdomen and pelvis with intravenous contrast. TECHNIQUE: Multiple contiguous axial images were obtained through the abdomen and pelvis after the uneventful administration of intravenous contrast. All CT scans use one or more of the following dose optimizing techniques: Automated exposure control, MA and/or KvP adjustment based on patient size and exam type or iterative reconstruction. HISTORY: Abdominal pain, leukocytosis. COMPARISON: 10/07/2020. FINDINGS: Limited views of the lower thorax are unremarkable. The liver is normal without focal lesion. There is no biliary ductal dilation. Gallbladder is absent. Pancreas is normal. Spleen is normal. There is an unchanged 2.5 cm left adrenal nodule. The kidneys are normal. There is no hydronephrosis. Urinary bladder is normal. There is a short segment of severe wall thickening of the ascending colon. There is surrounding stranding and a small amount of fluid. No obstruction. No drainable fluid collection. No free fluid or air. No abdominal or pelvic lymphadenopathy. Aorta is normal in caliber without aneurysm. There are no suspicious osseous lesions. There are bilateral total hip arthroplasties. IMPRESSION: 1. Short segment severe wall thickening of the ascending colon with surrounding stranding and fluid. Findings favor to represent a focal colitis. Follow-up to resolution recommended to ensure there is not a colon mass. 2. Unchanged left adrenal nodule. Dictated by: Dictated on workstation # [id number]
[2022-11-16] MEDS ORDERED: morphine INJ 10 MG/ML 1ML (SYR OR VIAL) IVP STA (17:20)
[2022-11-16] MEDS ORDERED: LACTATED RINGERS 1,000 ML IV SCH (18:00)
[2022-11-16] MEDS ORDERED: HYDROmorphone 2 MG/ML VIAL (DILAUDID) IV ONE (18:15)
--- NOTE | 2022-11-16 18:32 | Consultation - Surgery ---
History of Present Illness History of Present Illness Patient Consulted On(rosita/time) 11/16/22 18:18 Time Seen by Provider: 17:49 History of Present Illness Surgery asked to see pt regarding abdominal pain. HPI: Pt is a 72 yo female who presented to the ED with severe abdominal pain. States she had pain that started 3-4 days ago and then became severe "more than 10 out of 10" today. ED provider stated she had moderate pain, mostly suprapubic when she first came in today. However, when I saw her she was moaning in pain and stated the Fentanyl did not help her. She states this is worse than when she had Diverticulitis. Movement makes the pain worse, nothing is making it better. She also complains of dry mouth. She has recently been seeing Dr. Frazier for thrombocytopenia and has a bone marrow biopsy set up for Sunday of next week. Pain is all over the abdomen. Allergies and Home Medications Allergies Coded Allergies: latex (Verified Allergy, Intermediate, RASH, 09/09/20) Sulfa (Sulfonamide Antibiotics) (Verified Allergy, Unknown, 09/09/20) codeine (Verified Allergy, Unknown, 09/09/20) erythromycin base (Verified Allergy, Unknown, 09/09/20) Patient Home Medication List Home Medication List Reviewed: Yes Aspirin (Aspirin) 81 Mg Tab.chew, 81 MG PO DAILY, (Reported) Entered as Reported by: BIBIANA BERMUDEZ on 09/03/20 1446 Cholecalciferol (Vitamin D3) (Vitamin D3) 50 Mcg Tablet, 50 MCG PO DAILY, (Reported) Entered as Reported by: BIBIANA BERMUDEZ on 09/03/20 1446 Hydrocodone/Acetaminophen (Hydrocodone/Acetaminophen 5 MG/325 MG TAB) 1 Each Tablet, 1 TAB PO Q4-6HR Prescribed by: SIS WEI on 09/09/20 1251 Lorazepam (Ativan) 1 Mg Tablet, 2 MG SL HS, (Reported) Entered as Reported by: BIBIANA BERMUDEZ on 09/03/20 1446 Losartan Potassium (Losartan Potassium) 25 Mg Tablet, 25 MG PO DAILY, (Reported) Entered as Reported by: BIBIANA BERMUDEZ on 09/03/20 1446 Magnesium (Magnesium) 250 Mg Tablet, 250 MG PO DAILY, (Reported) Entered as Reported by: BIBIANA BERMUDEZ on 09/03/20 1446 Multivitamin (Multivitamin) 1 Each Tablet, 1 EACH PO DAILY, (Reported) Entered as Reported by: BIBIANA BERMUDEZ on 09/03/20 144 Pantoprazole Sodium (Protonix) 40 Mg Tablet.dr, 40 MG PO DAILY Prescribed by: ÓSCAR SINGH on 11/09/22 171 Prednisone (Prednisone) 20 Mg Tab, 60 MG PO DAILY Prescribed by: ÓSCAR SINGH on 11/09/221718 Tramadol HCl (Tramadol HCl) 50 Mg Tablet, 50 MG PO DAILY, (Reported) Entered as Reported by: BIBIANA BERMUDEZ on 09/03/20 144 Past Ghlcmlt-Gopgzz-Kzamte Hx Patient Social History Smoking Status: Former Smoker Former Smoker, Quit: Sep 03, 1999 Recent Hopitalizations: No Alcohol Use?: No Have you traveled recently?: No Immunizations Up To Date Date of Pneumonia Vaccine: Aug 11, 2012 Date of Influenza Vaccine: Aug 11, 2019 Seasonal Allergies Seasonal Allergies: No Surgeries History of Surgeries: Yes (LEFT KNEE REPLACEMENT, TOTAL RIGHT HIP, colon resection) Surgeries: Gallbladder Respiratory History of Respiratory Disorde: No Cardiovascular History of Cardiac Disorders: Yes (Cardiac catheter 2013 with 30 percent stenosis of RCA) Cardiac Disorders: Coronary Artery Disease, Hypertension Neurological History of Neurological Disord: Yes Neurological Disorders: Stroke Reproductive System Hx Reproductive Disorders: No Sexually Transmitted Disease: No HIV/AIDS: No Female Reproductive Disorders: Denies Genitourinary History of Genitourinary Disor: No Gastrointestinal History of Gastrointestinal Di: Yes Gastrointestinal Disorders: Diverticulosis, Gall Bladder Disease Musculoskeletal History of Musculoskeletal Dis: Yes (NECK PAIN) Musculoskeletal Disorders: Degenerate Disk Disease, Osteoporosis, Arthritis, Fibromyalgia Endocrine History of Endocrine Disorders: No HEENT History of HEENT Disorders: Yes HEENT Disorders: Cataract Loss of Vision: Bilateral Hearing Impairment: Denies Cancer History of Cancer: Yes Cancer: Breast Psychosocial History of Psychiatric Problem: No Integumentary History of Skin or Integumenta: No Blood Transfusions History of Blood Disorders: No Adverse Reaction to a Blood Tr: No Family Medical History Significant Family History: Heart Disease, Cancer Review of Systems-General Constitutional: chills, malaise, weakness EENTM: No blurred vision, No mouth pain, No mouth swelling, No epistaxis, No throat swelling Respiratory: No cough, No dyspnea on exertion, No hemoptysis, No short of breath Cardiovascular: No chest pain, No palpitations, No syncope Gastrointestinal: abdominal pain, heartburn; No jaundice; nausea; No vomiting Genitourinary: No dysuria, No frequency, No hematuria Musculoskeletal: back pain, joint pain, joint swelling, muscle stiffness Skin: No change in color, No change in hair/nails Psychiatric/Neurological: Anxiety; Denies Seizure; Other (hx of stroke) Physical Exam-General Problems Physical Exam Vital Signs Vital Signs - First Documented 11/16/22 15:07 Temp 39.9 Pulse 113 Resp 22 B/P (MAP) 153/79 (103) Pulse Ox 94 O2 Delivery Room Air Capillary Refill : General Appearance: severe distress, obese Eyes: Bilateral Eye PERRL, Bilateral Eye EOMI HEENT: pharynx normal (mucous membranes moist); No scleral icterus (R), No scleral icterus (L) Neck: non-tender, supple Respiratory: lungs clear, normal breath sounds, no respiratory distress, no accessory muscle use Cardiovascular: no murmur, tachycardia Gastrointestinal: soft, no organomegaly, no pulsatile mass, guarding (voluntary), rebound, tenderness (mostly right side) Back: no CVA tenderness, no vertebral tenderness Extremities: no calf tenderness, normal capillary refill Neurologic/Psychiatric: alert, oriented x 3 Skin: normal color, warm/dry Lymphatic: no adenopathy (neck, axilla or groin) Data Review Labs Laboratory Tests 11/16/22 15:09: White Blood Count 33.0*H, Red Blood Count 3.48L, Hemoglobin 10.7L, Hematocrit 31L, Mean Corpuscular Volume 90, Mean Corpuscular Hemoglobin 31, Mean Corpuscular Hemoglobin Concent 34, Red Cell Distribution Width 17.5H, Platelet Count 15*L, Mean Platelet Volume 10.3, Immature Granulocyte % (Auto) 19, Neutrophils (%) (Auto) 14L, Lymphocytes (%) (Auto) 47H, Monocytes (%) (Auto) 19H , Eosinophils (%) (Auto) 0, Basophils (%) (Auto) 0, Neutrophils # (Auto) 4.5, Lymphocytes # (Auto) 15.5H, Monocytes # (Auto) 6.4H, Eosinophils # (Auto) 0.0, Basophils # (Auto) 0.1, Immature Granulocyte # (Auto) 6.4H, Neutrophils % (Manual) 13, Lymphocytes % (Manual) 56, Monocytes % (Manual) 13, Nucleated Red Blood Cells 1, Atypical Lymphocytes 18, Percent Immature Platelet Fraction 2.7, Microcytosis SLIGHT, Prothrombin Time 13.7, INR Comment 1.0, Activated Partial Thromboplast Time 27, Sodium Level 137, Potassium Level 3.6, Chloride Level 103, Carbon Dioxide Level 22, Anion Gap 12, Blood Urea Nitrogen 18, Creatinine 0.90, Estimat Glomerular Filtration Rate 68, BUN/Creatinine Ratio 20, Glucose Level 162H, Lactic Acid Level 2.21*H, Calcium Level 8.8, Corrected Calcium 9.0, Total Bilirubin 0.5, Aspartate Amino Transf (AST/SGOT) 30, Alanine Aminotransferase (ALT/SGPT) 24, Alkaline Phosphatase 47, Total Protein 6.7, Albumin 3.7 11/16/22 15:33: Influenza Type A (RT-PCR) Not Detected, Influenza Type B (RT-PCR) Not Detected, SARS-CoV-2 RNA (RT-PCR) Not Detected 11/16/22 15:37: Urine Color ORANGE, Urine Clarity CLEAR, Urine pH 5.5, Urine Specific [place] 1.020, Urine Protein 1+H, Urine Glucose (UA) NEGATIVE, Urine Ketones NEGATIVE, Urine Nitrite POSITIVEH, Urine Bilirubin NEGATIVE, Urine Urobilinogen 0.2, Urine Leukocyte Esterase NEGATIVE, Urine RBC (Auto) 2+H, Urine RBC 5-10H, Urine WBC 2- 5, Urine Squamous Epithelial Cells 2-5, Urine Crystals NONE, Urine Bacteria FEWH , Urine Casts NONE, Urine Mucus NEGATIVE, Urine Culture Indicated CULTURE PENDING 11/16/22 18:07: Radiology Signed Date of Exam:11/16/22 CT ABDOMEN/PELVIS W EXAMINATION: CT abdomen and pelvis with intravenous contrast. TECHNIQUE: Multiple contiguous axial images were obtained through the abdomen and pelvis after the uneventful administration of intravenous contrast. All CT scans use one or more of the following dose optimizing techniques: Automated exposure control, MA and/or KvP adjustment based on patient size and exam type or iterative reconstruction. HISTORY: Abdominal pain, leukocytosis. COMPARISON: 10/07/2020. FINDINGS: Limited views of the lower thorax are unremarkable. The liver is normal without focal lesion. There is no biliary ductal dilation. Gallbladder is absent. Pancreas is normal. Spleen is normal. There is an unchanged 2.5 cm left adrenal nodule. The kidneys are normal. There is no hydronephrosis. Urinary bladder is normal. There is a short segment of severe wall thickening of the ascending colon. There is surrounding stranding and a small amount of fluid. No obstruction. No drainable fluid collection. No free fluid or air. No abdominal or pelvic lymphadenopathy. Aorta is normal in caliber without aneurysm. There are no suspicious osseous lesions. There are bilateral total hip arthroplasties. IMPRESSION: 1. Short segment severe wall thickening of the ascending colon with surrounding stranding and fluid. Findings favor to represent a focal colitis. Follow-up to resolution recommended to ensure there is not a colon mass. 2. Unchanged left adrenal nodule. Dictated by: Dictated on workstation # [id number] Dict: 11/16/222 Trans: 11/16/22 1716 [id number] Interpreted by: ORIANA KONG MD Electronically signed by: ORIANA KONG MD 11/16/22 1716 Assessment/Plan Assessment/Plan Assessment/Plan Colitis Thrombocytopenia Leukocytosis Septic - meets criteria, but not sure if she has a bacteremia Lactic Acidosis - probably just secondary to dehydration CAD, HTN, Hx of Breast CA Plan is to admit pt to the ICU, IV fluids should be running at 200ml per hour, pain control, anti-emetics as needed. I reviewed the CT myself and the ascending colon is very inflamed and edematous, along with her pain I am very worried that she could need surgery. However, she is a poor candidate with her thrombocytopenia. I had the ER order a type and screen for platelets in anticipation of possible need for surgery. It might be best to get some IV ABX started, fluids and pain control and recheck labs and physical exam in the am. She has a fever, tachycardia and leukocytosis and source of infection may be the ascending colon. Her WBC went from 16 to 33; unsure if this is due to sepsis or her possible blood disorder (leukemia) I discussed her case with ED provider and another surgeon. Will monitor her progress. COOKIE MCKAY DO Nov 16, 2022 18:32
[2022-11-16] MEDS ORDERED: diphenhydrAMINE 50 MG/ML INJ (BENADRYL) IVP PRN (18:45)
[2022-11-16] MEDS ORDERED: MELATONIN 3 MG TABLET PO PRN (18:45)
[2022-11-16] MEDS ORDERED: LACTULOSE SYRUP 10GM/15ML (ENULOSE) 30ML UDC PO PRN (18:45)
[2022-11-16] MEDS ORDERED: MILK OF MAGNESIA 400 MG/5 ML 30 ML UDC PO PRN (18:45)
[2022-11-16] MEDS ORDERED: ONDANSETRON 4 MG (ZOFRAN) ORAL DISSOLVE TAB PO PRN (18:45)
[2022-11-16] MEDS ORDERED: ACETAMINOPHEN 650 MG SUPP (TYLENOL) PR PRN (18:45)
[2022-11-16] MEDS ORDERED: ACETAMINOPHEN 325 MG TABLET PO PRN (18:45)
[2022-11-16] MEDS ORDERED: LORazepam INJ 2 MG/ML (ATIVAN) VIAL IVP PRN (18:45)
[2022-11-16] MEDS ORDERED: LORazepam 0.5 MG (ATIVAN) TABLET PO PRN (18:45)
[2022-11-16] MEDS ORDERED: NS IV 500 ML 500 ML IV PRN (18:45)
[2022-11-16] MEDS ORDERED: ANTACID SUSP 30 ML UDC (MYLANTA) PO PRN (18:45)
[2022-11-16] MEDS ORDERED: CALCIUM CARBONATE 500 MG (TUMS) TAB.CHEW PO PRN (18:45)
[2022-11-16] MEDS ORDERED: ONDANSETRON 4 MG/2 ML (SDV) Z0FRAN IV PRN (18:45)
[2022-11-16] MEDS ORDERED: diphenhydrAMINE 25 MG TAB (BENADRYL) PO PRN (18:45)
[2022-11-16] MEDS ORDERED: polyethylene glycoL POWDER 17 GM (MIRALAX) PACK PO PRN (18:45)
[2022-11-16] MEDS ORDERED: BISACODYL 10 MG SUPP (DULCOLAX) PR PRN (18:45)
[2022-11-16 19:00] VITALS: BP 109/61
[2022-11-16] MEDS ORDERED: PIPERACILLIN SODIUM/TAZOBACTAM 4.5 GM in NS (IVPB) 100 ML IV NR (19:30)
[2022-11-16 20:00] VITALS: BP 113/53
[2022-11-16] MEDS: metroNIDAZOLE 500MG/100ML IVPB 100 ML IV SCH (20:02)
[2022-11-16] MEDS: DOCUSATE SODIUM 100 MG (COLACE) CAP PO SCH (20:55)
[2022-11-16] MEDS: SENNOSIDES 8.6 MG (SENOKOT) TAB PO SCH (20:55)
[2022-11-16 21:00] VITALS: BP 97/46
[2022-11-16 21:01] LABS: HEMATOCRIT 33 % (35-52); HEMOGLOBIN 10.6 g/dL (11.5-16.0); MEAN CORPUSCULAR HEMOGLOBIN 30 pg (25-34); MEAN CORPUSCULAR HGB CONC 33 g/dL (32-36); MEAN CORPUSCULAR VOLUME 93 fL (80-99); MEAN PLATELET VOLUME 10.4 fL (9.0-12.2); PLATELET COUNT 42 10^3/uL (130-400)
[2022-11-16 21:05] LABS: WHITE BLOOD COUNT 75.5 10^3/uL (4.3-11.0)
[2022-11-16 21:10] LABS: POTASSIUM 2.9 MMOL/L (3.6-5.0)
[2022-11-16 21:11] LABS: CALCIUM 8.4 MG/DL (8.5-10.1)
[2022-11-16 21:16] LABS: CREATININE SERUM 0.97 MG/DL (0.60-1.30)
--- NOTE | 2022-11-16 21:18 | Tele-ICU Consult ---
History of Present Illness History of Present Illness Date Seen by Provider: Nov 16, 2022 Time Seen by Provider: 21:14 Date of Admission 11/16/2022 History of Present Illness (Tele-ICU Physician , consultation) Available chart/ vitals / labs / Images reviewed H&P is from ER notes Patient's information available about PMH, allergy reviewed in EMR. ROS as per chart and RN report Video assessment done using teleICU camera, rest of exam as per RN Discussed with RN. She is a 72-year-old female with past medical history of breast cancer and recently diagnosed thrombocytopenia which is being evaluated by hematology service and is scheduled for a bone marrow biopsy next week was presented to the emergency room today with complaint of abdominal pain associated with nausea as well as a fever. She does have a urinary urgency. She also reportedly had a rectal pain intermittently. No nausea or and no vomiting or diarrhea present however. A CT of the abdomen and pelvis done in the emergency room revealed ascending colon thickening suggestive of colitis. Also she is found to have a marked leukocytosis and thrombocytopenia. On the differential she has a predominantly lymphocytic predominance present suspicious for possible leukemia. She is evaluated by the general surgeon and he felt she there is no acute indication for surgery and suggested pain relief along with hydration and antibiotics and trend lactic acid level. I have repeated a CBC this evening which he showed marked increased to 75,000. However after giving the Dilaudid she is resting comfortably and her heart rate is down to 89/min. Impression 1. Abdominal pain secondary to acute colitis/ischemic colitis. 2. Marked leukocytosis and thrombocytopenia probably related to underlying hemopoietic malignancy such as leukemia. 3. History of breast cancer and it is not clear whether she had any metastasis. 4. Mild lactic acidosis probably due to sepsis versus ischemia. Recommendations 1. Hydrate patient with IV fluids and will give broad-spectrum antibiotics 2. Adequate analgesia 3. We will trend lactic acid 4. Continue monitor white count and platelet count. 5. Suggest hematology oncology consult in a.m. 6. General surgery consultation already requested and seen by general surgery. 7. Platelets to be kept standby in case necessary for any acute intervention. 8. Hold off any anticoagulants due to 3 severe thrombocytopenia. Coordination of care with the bedside consultants and primary care physician. Allergies and Home Medications Allergies Coded Allergies: latex (Verified Allergy, Intermediate, RASH, 09/09/20) Sulfa (Sulfonamide Antibiotics) (Verified Allergy, Unknown, 09/09/20) codeine (Verified Allergy, Unknown, 09/09/20) erythromycin base (Verified Allergy, Unknown, 09/09/20) Home Medications Aspirin 81 Mg Tab.chew, 81 MG PO DAILY, (Reported) Cholecalciferol (Vitamin D3) 50 Mcg Tablet, 50 MCG PO DAILY, (Reported) Hydrocodone/Acetaminophen 1 Each Tablet, 1 TAB PO Q4-6HR Prescribed by: SIS WEI on 09/09/20 1251 Lorazepam 1 Mg Tablet, 2 MG SL HS, (Reported) Losartan Potassium 25 Mg Tablet, 25 MG PO DAILY, (Reported) Magnesium 250 Mg Tablet, 250 MG PO DAILY, (Reported) Multivitamin 1 Each Tablet, 1 EACH PO DAILY, (Reported) Pantoprazole Sodium 40 Mg Tablet.dr, 40 MG PO DAILY Prescribed by: ÓSCAR SINGH on 11/09/221718 Prednisone 20 Mg Tab, 60 MG PO DAILY Prescribed by: ÓSCAR SINGH on 11/09/221718 Tramadol HCl 50 Mg Tablet, 50 MG PO DAILY, (Reported) Past Medical/Social/Family Hx Patient Social History Tobacco Use?: No Smoking Status: Former Smoker Use of E-Cig and/or Vaping dev: No Substance use?: No Alcohol Use?: No Pt stated abuse/neglect: No Immunizations Up To Date First/Initial COVID19 Vaccinat: RECEIVED, UNK WHEN Date of Pneumonia Vaccine: Aug 11, 2012 Current Status Advance Directives: No Communicates: Verbally Primary Language: [place] Preferred Spoken Language: [place] Is interpretation needed?: No Review of Systems Constitutional: see HPI, malaise, weakness Focused Exam Lactate Level 11/16/22 15:09: Lactic Acid Level 2.21*H 11/16/22 18:07: Lactic Acid Level 2.57*H 11/16/22 20:00: Lactic Acid Level 2.99*H Height, Weight, BMI Height: 5'6" Weight: 198lbs. 0.0oz. 89.912901ss; 34.00 BMI Method:Stated Lactic Acid Level Laboratory Tests Test 11/16/22 18:07 11/16/22 20:00 Lactic Acid Level 2.57 MMOL/L (0.50-2.00) *H 2.99 MMOL/L (0.50-2.00) *H Exam Exam Patient acknowledged, consented, and participated in this virtual visit which was conducted using real time audio/video Vital Signs Date Time Temp Pulse Resp B/P (MAP) Pulse Ox O2 Delivery O2 Flow Rate FiO2 11/16/22 19:00 92 11/16/22 18:50 97 Room Air 11/16/22 18:32 38.0 86 18 121/60 98 Nasal Cannula 2.00 11/16/22 18:16 98 Nasal Cannula 2.00 11/16/22 15:07 39.9 113 22 153/79 (103) 94 Room Air Height & Weight Height: 5'6" Weight: 198lbs. 0.0oz. 89.425347aw; 34.00 BMI Method:Stated General Appearance: No Apparent Distress, WD/WN HEENT: TMs Normal, Normal ENT Inspection, Pharynx Normal Neck: Full Range of Motion, Non Tender, Supple Respiratory: Chest Non Tender, Lungs Clear, Normal Breath Sounds, No Accessory Muscle Use, No Respiratory Distress Cardiovascular: Regular Rate, Rhythm Gastrointestinal: soft, no organomegaly, no pulsatile mass, guarding (voluntary), rebound, tenderness (mostly right side) Neurologic/Psychiatric: Alert, Oriented x3, No Motor/Sensory Deficits, Normal Mood/Affect Skin: Normal Color, Warm/Dry Other comments PE PER RN Results Lab Laboratory Tests 11/16/22 15:09 11/16/22 20:45 Assessment/Plan Assessment/Plan ABOVE Critical Care: Critically Ill Patient Time spent with patient (mins): 32 HILL BARRIENTOS MD Nov 16, 2022 21:17
[2022-11-16] MEDS ORDERED: POTASSIUM CL 10MEQ/50ML IVPB 250 ML IV ONE (21:49)
[2022-11-16] MEDS: POTASSIUM CL 10MEQ/50ML IVPB 50 ML IV SCH ×3 (21:52→23:46)
[2022-11-16 22:00] VITALS: BP 103/37
[2022-11-16 23:00] VITALS: BP 92/50
[2022-11-16 23:34] VITALS: BP 153/79
[2022-11-17] VITALS (16 sets, daily range): BP systolic 84–114; BP diastolic 41–59
[2022-11-17] MEDS ORDERED: RT-ALBUTEROL SULF 2.5 MG/3 ML PRE-MIX VIAL INH PRN (00:15)
[2022-11-17] MEDS: NS IV 1000 ML 1,000 ML IV SCH ×2 (00:56→06:31)
[2022-11-17] MEDS: POTASSIUM CL 10MEQ/50ML IVPB 50 ML IV SCH ×2 (00:56→01:48)
[2022-11-17] MEDS: HYDROmorphone 2 MG/ML VIAL (DILAUDID) IVP PRN ×5 (01:48→15:13)
[2022-11-17] MEDS: PIPERACILLIN SODIUM/TAZOBACTAM 4.5 GM in NS (IVPB) 100 ML IV SCH ×2 (02:54→11:07)
[2022-11-17 03:17] LABS: BASOPHILS # (AUTO) 0.3 10^3/uL (0.0-0.1); BASOPHILS % (AUTO) 0 % (0-10); EOSINOPHILS % (AUTO) 0 % (0-10); HEMATOCRIT 29 % (35-52); HEMOGLOBIN 9.9 g/dL (11.5-16.0); LYMPHOCYTES # (AUTO) 27.2 10^3/uL (1.0-4.0); LYMPHOCYTES % (AUTO) 43 % (12-44); MEAN CORPUSCULAR HEMOGLOBIN 31 pg (25-34); MEAN CORPUSCULAR HGB CONC 34 g/dL (32-36); MEAN CORPUSCULAR VOLUME 91 fL (80-99); MEAN PLATELET VOLUME 10.2 fL (9.0-12.2); MONOCYTES # (AUTO) 3.9 10^3/uL (0.0-1.0); MONOCYTES % (AUTO) 6 % (0-12); NEUTROPHILS # (AUTO) 31.8 10^3/uL (1.8-7.8); NEUTROPHILS % (AUTO) 50 % (42-75)
[2022-11-17 03:18] LABS: PLATELET COUNT 18 10^3/uL (130-400); WHITE BLOOD COUNT 63.6 10^3/uL (4.3-11.0)
[2022-11-17 03:26] LABS: ALBUMIN 2.9 GM/DL (3.2-4.5); POTASSIUM 4.6 MMOL/L (3.6-5.0)
[2022-11-17 03:27] LABS: CALCIUM 7.7 MG/DL (8.5-10.1)
[2022-11-17 03:29] LABS: TOTAL PROTEIN 5.2 GM/DL (6.4-8.2)
[2022-11-17 03:30] LABS: BILIRUBIN,TOTAL 0.3 MG/DL (0.1-1.0)
[2022-11-17 03:32] LABS: CREATININE SERUM 1.55 MG/DL (0.60-1.30); PHOSPHORUS 4.2 MG/DL (2.3-4.7)
[2022-11-17 03:35] LABS: MAGNESIUM 1.4 MG/DL (1.6-2.4)
[2022-11-17] MEDS ORDERED: MAGNESIUM 1 GM/100 ML IVPB 100 ML IV SCH (06:00)
[2022-11-17] MEDS ORDERED: POTASSIUM CL 10MEQ/50ML IVPB 50 ML IV SCH (06:00)
[2022-11-17] MEDS ORDERED: KCL 20 MEQ TAB (K-DUR) PO SCH (06:00)
[2022-11-17 06:18] LABS: LYMPHOCYTES % (MANUAL) 36 %; MONOCYTES % (MANUAL) 33 %; NEUTROPHILS % (MANUAL) 8 %
[2022-11-17 06:19] LABS: ATYPICAL LYMPHOCYTES 25 %
[2022-11-17 06:20] LABS: ANISOCYTOSIS SLIGHT
--- NOTE | 2022-11-17 06:21 | History & Physical ---
History of Present Illness HPI/Chief Complaint CC: Severe sepsis from acute colitis HPI: This is a 72yoWF clinic patient of mine who has a h/o fibromyalgia who presented to the ER and was found to have colitis as the cause for abdominal pain. Dr Harris consulted and he recommended IVF at 200cc/hr and considering her elevated wbc and h/o CLL/myelodyplasia she was moved to ICU for aggressive IV abx and IVF. Zosyn and Flagyl both initiated empirically. Patient had severe thrombocytopenia so Dr Frazier consulted whom was already established care with patient who was concerned for leukemia. PICC line placed. Patient reports abdominal pain but her BP was too low for pain meds. was updated on the critical status of the patient. Dr Frazier called me and informed me her blood smear assessed to be acute myeloid leukemia so Dr Frazier arranged transfer to [facility]. Source: patient, RN/MD, old records Exam Limitations: clinical condition Date Seen 11/17/22 Time Seen by a Provider: 11:00 Attending Physician [facility] PCP Admitting Physician: Raiza Mantilla DO Attending Physician: Raiza Mantilla DO Referring Physician Date of Admission Nov 16, 2022 at 18:06 Home Medications & Allergies Home Medications Reviewed patient Home Medication Reconciliation performed by pharmacy medication reconciliations composite technician and/or nursing. Patients Allergies have been reviewed. Allergies Allergies Coded Allergies latex (Verified Allergy, Intermediate, RASH, 09/09/20) Sulfa (Sulfonamide Antibiotics) (Verified Allergy, Unknown, 09/09/20) codeine (Verified Allergy, Unknown, 09/09/20) erythromycin base (Verified Allergy, Unknown, 09/09/20) Past Ssxtick-Psneeh-Eaorhe Hx Past Med/Social Hx: Reviewed Nursing Past Med/Soc Hx, Reviewed and Corrections made Patient Social History Marrital Status: Employed/Student: retired Alcohol Use: Denies Use Smoking Status: Former Smoker Former Smoker, Quit: Sep 03, 1999 Recent Hopitalizations: No Immunizations Up To Date Date of Pneumonia Vaccine: Aug 11, 2012 Date of Influenza Vaccine: Aug 11, 2019 Seasonal Allergies Seasonal Allergies: No Past Medical History Surgeries: Gallbladder Cardiac: Coronary Artery Disease, Hypertension Neurological: Stroke Reproductive: No Sexually Transmitted Disease: No HIV/AIDS: No Female Reproductive Disorders: Denies Gastrointestinal: Diverticulosis, Gall Bladder Disease Musculoskeletal: Degenerate Disk Disease, Osteoporosis, Arthritis, Fibromyalgia HEENT: Cataract Loss of Vision: Bilateral Hearing Impairment: Denies Cancer: Breast History of Blood Disorders: No Adverse Reaction to Blood Emanuel: No Family History Heart Disease, Cancer Review of Systems Constitutional: see HPI, malaise, weakness EENTM: no symptoms reported Respiratory: dyspnea on exertion Cardiovascular: no symptoms reported Gastrointestinal: abdominal pain, loss of appetite, nausea Genitourinary: no symptoms reported Musculoskeletal: back pain Skin: no symptoms reported Psychiatric/Neurological: Anxiety All Other Systems Reviewed Negative Unless Noted: Yes Physical Exam Physical Exam Vital Signs Vital Signs - First Documented 11/16/22 11/16/22 15:07 18:16 Temp 39.9 Pulse 113 Resp 22 B/P (MAP) 153/79 (103) Pulse Ox 94 O2 Delivery Room Air O2 Flow Rate 2.00 Capillary Refill : Height, Weight, BMI Height: 5'6" Weight: 198lbs. 0.0oz. 89.096421yl; 34.38 BMI Method:Stated General Appearance: WD/WN, Anxious, Chronically ill Eyes: Bilateral Eye PERRL, Bilateral Eye EOMI HEENT: TMs Normal, Normal ENT Inspection, Pharynx Normal Neck: Full Range of Motion, Non Tender, Supple Respiratory: Chest Non Tender, Lungs Clear, Normal Breath Sounds, No Accessory Muscle Use, No Respiratory Distress Cardiovascular: Regular Rate, Rhythm Gastrointestinal: Soft, Guarding, Tenderness Neurologic/Psychiatric: Alert, Oriented x3, No Motor/Sensory Deficits, Normal Mood/Affect Skin: Normal Color, Warm/Dry Results Results/Procedures Labs Laboratory Tests 11/16/22 15:09 11/16/22 20:45 11/17/22 03:04 Patient resulted labs reviewed. 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
[2022-11-17] MEDS: MAGNESIUM 1 GM/100 ML IVPB 100 ML IV SCH ×2 (06:31→07:38)
[2022-11-17] MEDS: metroNIDAZOLE 500MG/100ML IVPB 100 ML IV SCH (08:36)
[2022-11-17] MEDS: DOCUSATE SODIUM 100 MG (COLACE) CAP PO SCH (09:02)
[2022-11-17] MEDS: SENNOSIDES 8.6 MG (SENOKOT) TAB PO SCH (09:02)
[2022-11-17] MEDS ORDERED: LACTATED RINGERS 1,000 ML IV SCH (09:15)
--- NOTE | 2022-11-17 09:22 | Tele-ICU Progress Note ---
Subjective Date Seen by a Provider: Nov 17, 2022 Time Seen by a Provider: 09:22 Subjective/Events-last exam (Tele-ICU Physician , Progress Note ) Service provided via interactive audio and video telecommunications E-CARE system to a patient admitted to ICU bed in [facility]. Patient is seen today due to persistent need of ICU care Available chart/ vitals / labs / Images reviewed Video assessment done using teleICU camera, rest of exam as per RN Discussed with RN Events overnight : Afebrile hemodynamically stable Respiratory - I/O = Drips: Pressors- no Consultants: Hospital course: A/P acute colitis/ischemic colitis ( no diarrhea inpatient ) - sx consulted , WBC 60s now - pain control -abx Bacteremia - 2 cx periph with clostridium - repeat cx today , on falgyl UTI with ecoli - cont abx sepsis -with all above , cont abx and hydratio Thromocytopenia - will need transfusion for sx - onc consulted , was scheduled to haveBM bx this week as part of w/up ANDREA - additional LR boluses - follow closely Hypotension , relative - ECHO 03/13/22 - EF 65% - will cont agressive hydration lethargy - in general illness and opioids h/o Right breast infiltrating ductal carcinoma. - s/p lumpectomy 2019 Home med list mention prednisone - ? indications? , needs to resume ? - as per bedside team Lines : periph , (Central Line Necessity Reviewed) [place]ay: OG: Nutrition: npo Analgesia: Anxiety/ delirium VTE Prophylaxis: scd prn , low PLT Stress Ulcer Prophylaxis: na Plans in collaboration with bedside consultants and IM MDs. Discussed with RN to reach out if any questions or concerns A total of 36 minutes of critical care time was devoted to this patient today, required to treat and/or prevent further deterioration of critical care c ondition ( as above ) . I am remotely monitoring this patient from another state. I am unable to do the bedside exam, and history/physical and pertinent information is taken from other notes in the computer and bedside staff. Sepsis Event Evaluation Height, Weight, BMI Height: 5'6" Weight: 198lbs. 0.0oz. [id number]; 34.38 BMI Method:Stated Focused Exam Lactate Level 11/17/22 03:04: Lactic Acid Level 3.46*H 11/17/22 04:56: Lactic Acid Level 3.46*H 11/17/22 06:59: Lactic Acid Level 2.03*H Lactic Acid Level Laboratory Tests Test 11/17/22 06:59 Lactic Acid Level 2.03 MMOL/L (0.50-2.00) *H Exam Exam Patient acknowledged, consented, and participated in this virtual visit which was conducted using real time audio/video Vital Signs Date Time Temp Pulse Resp B/P (MAP) Pulse Ox O2 Delivery O2 Flow Rate FiO2 11/17/22 09:00 84 21 95/45 (62) 94 Nasal Cannula 1.50 11/17/22 08:00 85 18 101/45 (63) 94 Nasal Cannula 1.50 11/17/22 08:00 92 Nasal Cannula 1.50 11/17/22 07:48 94 Nasal Cannula 1.50 11/17/22 07:00 93 99/45 (63) 93 Nasal Cannula 1.50 11/17/22 07:00 91 11/17/22 06:22 36.7 11/17/22 06:13 36.7 11/17/22 06:00 91 26 94/46 (62) 93 Nasal Cannula 1.50 11/17/22 05:00 97 31 90/41 (57) 93 Nasal Cannula 1.50 11/17/22 04:57 37.5 11/17/22 04:50 37.5 11/17/22 04:16 93 Nasal Cannula 1.50 11/17/22 04:00 94 23 97/45 (62) 92 Nasal Cannula 1.50 11/17/22 03:00 100 26 84/46 (59) 91 Nasal Cannula 1.50 11/17/22 02:00 92 22 92/47 (62) 95 Nasal Cannula 1.50 11/17/22 01:00 99 11/17/22 01:00 96 25 89/53 (65) 97 Nasal Cannula 1.50 11/17/22 00:00 36.4 11/17/22 00:00 95 23 100/59 (73) 99 Nasal Cannula 1.50 11/16/22 23:59 96 Nasal Cannula 1.50 11/16/22 23:34 39.9 113 94 11/16/22 23:00 112 37 92/50 (64) 92 Nasal Cannula 1.50 1/26/23 22:00 90 22 103/37 (59) 97 Nasal Cannula 1.50 11/16/22 21:00 93 17 97/46 (63) 96 Nasal Cannula 1.50 11/16/22 20:00 96 24 113/53 (73) 97 Nasal Cannula 1.50 11/16/22 20:00 96 Room Air 11/16/22 19:03 36.8 Nasal Cannula 1.50 11/16/22 19:00 92 11/16/22 19:00 84 22 109/61 (77) 96 Nasal Cannula 1.50 11/16/22 19:00 36.8 Nasal Cannula 1.50 11/16/22 18:50 97 Room Air 11/16/22 18:32 38.0 86 18 121/60 98 Nasal Cannula 2.00 11/16/22 18:16 98 Nasal Cannula 2.00 11/16/22 15:07 39.9 113 22 153/79 (103) 94 Room Air I & O 11/17/22 07:00 Intake Total 1450 ml Output Total 350 ml Balance 1100 ml Height & Weight Height: 5'6" Weight: 198lbs. 0.0oz. [id number]; 34.38 BMI Method:Stated General Appearance: No Apparent Distress, WD/WN HEENT: TMs Normal, Normal ENT Inspection, Pharynx Normal Neck: Full Range of Motion, Non Tender, Supple Respiratory: Chest Non Tender, Lungs Clear, Normal Breath Sounds, No Accessory Muscle Use, No Respiratory Distress Cardiovascular: Regular Rate, Rhythm Gastrointestinal: soft, no organomegaly, no pulsatile mass, guarding (voluntary), rebound, tenderness (mostly right side) Neurologic/Psychiatric: Alert, Oriented x3, No Motor/Sensory Deficits, Normal Mood/Affect Skin: Normal Color, Warm/Dry Results Lab Laboratory Tests 11/16/22 15:09 11/16/22 20:45 11/17/22 03:04 Assessment/Plan Assessment/Plan 1 PHI BENZ MD Nov 17, 2022 09:22
--- NOTE | 2022-11-17 10:34 | Physical Therapy Progress Note ---
Therapy Progress Note Patient on Hold per RN due to current status. PT will attempt later today or tomorrow AGGIE Rodrigues PT Nov 17, 2022 10:33
--- NOTE | 2022-11-17 10:45 | Occ Therapy Progress Note ---
Therapy Progress Note Patient on Hold per RN due to current status. PICC to be placed. OT to evaluate next available opportunity CK TAPIA OT Nov 17, 2022 10:45
--- NOTE | 2022-11-17 11:22 | Progress Note - Surgery ---
ROB MARTINEZ 11/17/22 1122: Subjective Date Seen by a Provider: Nov 17, 2022 Time Seen by a Provider: 10:25 Subjective/Events-last exam Ms. Suresh is being followed by general surgery for ascending colitis. This morning patient reports 10/10 abdominal pain that is improved with her medicine but she still describes it as very severe and diffuse. She says it is worse in the RUQ and RLQ but still painful in her whole abdomen. She is following Dr. Frazier and has a bone marrow biopsy scheduled for next Sunday, DEC 14. Patient endorse nausea and reports vomiting yesterday. She is currently NPO and in a fair amount of distress from her abdominal pain. Review of Systems General: Chills, Fatigue HEENT: No Head Aches, No Visual Changes Pulmonary: No Dyspnea, No Cough Cardiovascular: No: Chest Pain, Palpitations Gastrointestinal: Nausea, Vomiting, Abdominal Pain Neurological: No: Weakness, Confusion Focused Exam Lactate Level 11/17/22 03:04: Lactic Acid Level 3.46*H 11/17/22 04:56: Lactic Acid Level 3.46*H 11/17/22 06:59: Lactic Acid Level 2.03*H Objective Exam Vital Signs Date Time Temp Pulse Resp B/P (MAP) Pulse Ox O2 Delivery O2 Flow Rate FiO2 11/17/22 10:00 84 16 92/47 (62) 93 Nasal Cannula 1.50 11/17/22 09:00 84 21 95/45 (62) 94 Nasal Cannula 1.50 11/17/22 08:00 85 18 101/45 (63) 94 Nasal Cannula 1.50 11/17/22 08:00 92 Nasal Cannula 1.50 11/17/22 07:48 94 Nasal Cannula 1.50 11/17/22 07:00 93 99/45 (63) 93 Nasal Cannula 1.50 11/17/22 07:00 91 11/17/22 06:22 36.7 11/17/22 06:13 36.7 11/17/22 06:00 91 26 94/46 (62) 93 Nasal Cannula 1.50 11/17/22 05:00 97 31 90/41 (57) 93 Nasal Cannula 1.50 11/17/22 04:57 37.5 11/17/22 04:50 37.5 11/17/22 04:16 93 Nasal Cannula 1.50 11/17/22 04:00 94 23 97/45 (62) 92 Nasal Cannula 1.50 11/17/22 03:00 100 26 84/46 (59) 91 Nasal Cannula 1.50 11/17/22 02:00 92 22 92/47 (62) 95 Nasal Cannula 1.50 11/17/22 01:00 99 11/17/22 01:00 96 25 89/53 (65) 97 Nasal Cannula 1.50 11/17/22 00:00 36.4 11/17/22 00:00 95 23 100/59 (73) 99 Nasal Cannula 1.50 11/16/22 23:59 96 Nasal Cannula 1.50 11/16/22 23:34 39.9 113 94 11/16/22 23:00 112 37 92/50 (64) 92 Nasal Cannula 1.50 11/16/22 22:00 90 22 103/37 (59) 97 Nasal Cannula 1.50 11/16/22 21:00 93 17 97/46 (63) 96 Nasal Cannula 1.50 11/16/22 20:00 96 24 113/53 (73) 97 Nasal Cannula 1.50 11/16/22 20:00 96 Room Air 11/16/22 19:03 36.8 Nasal Cannula 1.50 11/16/22 19:00 92 11/16/22 19:00 84 22 109/61 (77) 96 Nasal Cannula 1.50 11/16/22 19:00 36.8 Nasal Cannula 1.50 11/16/22 18:50 97 Room Air 11/16/22 18:32 38.0 86 18 121/60 98 Nasal Cannula 2.00 11/16/22 18:16 98 Nasal Cannula 2.00 11/16/22 15:07 39.9 113 22 153/79 (103) 94 Room Air I & O 11/17/22 06:59 Intake Total 1450 ml Output Total 350 ml Balance 1100 ml Capillary Refill : General Appearance: WD/WN, Mild Distress HEENT: Moist Mucous Membranes; No Scleral Icterus (L), No Scleral Icterus (R) Neck: Non Tender, Supple Respiratory: Chest Non Tender, Lungs Clear, Normal Breath Sounds, No Accessory Muscle Use, No Respiratory Distress Cardiovascular: Regular Rate, Rhythm, No Murmur, Normal Peripheral Pulses Peripheral Pulses: 2+ Radial Pulses (R), 2+ Radial Pulses (L) Gastrointestinal: soft, distended (Firm), guarding (voluntary), rebound, tenderness (Diffuse tenderness, R > L) Neurologic/Psychiatric: Alert, Oriented x3, No Motor/Sensory Deficits, Normal Mood/Affect Skin: Normal Color, Warm/Dry Results Lab Laboratory Tests 11/16/22 15:09: White Blood Count 33.0*H, Red Blood Count 3.48L, Hemoglobin 10.7L, Hematocrit 31L, Mean Corpuscular Volume 90, Mean Corpuscular Hemoglobin 31, Mean Corpuscular Hemoglobin Concent 34, Red Cell Distribution Width 17.5H, Platelet Count 15*L, Mean Platelet Volume 10.3, Immature Granulocyte % (Auto) 19, N eutrophils (%) (Auto) 14L, Lymphocytes (%) (Auto) 47H, Monocytes (%) (Auto) 19H, Eosinophils (%) (Auto) 0, Basophils (%) (Auto) 0, Neutrophils # (Auto) 4.5, Lymphocytes # (Auto) 15.5H, Monocytes # (Auto) 6.4H, Eosinophils # (Auto) 0.0, Basophils # (Auto) 0.1, Immature Granulocyte # (Auto) 6.4H, Neutrophils % (Manual) 13, Lymphocytes % (Manual) 56, Monocytes % (Manual) 13, Nucleated Red Blood Cells 1, Atypical Lymphocytes 18, Percent Immature Platelet Fraction 2.7, Microcytosis SLIGHT, Prothrombin Time 13.7, INR Comment 1.0, Activated Partial Thromboplast Time 27, Sodium Level 137, Potassium Level 3.6, Chloride Level 103, Carbon Dioxide Level 22, Anion Gap 12, Blood Urea Nitrogen 18, Creatinine 0.90, Estimat Glomerular Filtration Rate 68, BUN/Creatinine Ratio 20, Glucose Level 162H, Lactic Acid Level 2.21*H, Calcium Level 8.8, Corrected Calcium 9.0, Total Bilirubin 0.5, Aspartate Amino Transf (AST/SGOT) 30, Alanine Aminotransferase (ALT/SGPT) 24, Alkaline Phosphatase 47, Total Protein 6.7, Albumin 3.7 11/16/22 15:33: Influenza Type A (RT-PCR) Not Detected, Influenza Type B (RT-PCR) Not Detected, SARS-CoV-2 RNA (RT-PCR) Not Detected 11/16/22 15:37: Urine Color ORANGE, Urine Clarity CLEAR, Urine pH 5.5, Urine Specific Delancey 1.020, Urine Protein 1+H, Urine Glucose (UA) NEGATIVE, Urine Ketones NEGATIVE, Urine Nitrite POSITIVEH, Urine Bilirubin NEGATIVE, Urine Urobilinogen 0.2, Urine Leukocyte Esterase NEGATIVE, Urine RBC (Auto) 2+H, Urine RBC 5-10H, Urine WBC 2- 5, Urine Squamous Epithelial Cells 2-5, Urine Crystals NONE, Urine Bacteria FEWH , Urine Casts NONE, Urine Mucus NEGATIVE, Urine Culture Indicated CULTURE PENDING 11/16/22 18:07: Lactic Acid Level 2.57*H 11/16/22 20:00: Lactic Acid Level 2.99*H 11/16/22 20:45: White Blood Count 75.5*H, Red Blood Count 3.51L, Hemoglobin 10.6L, Hematocrit 33L, Mean Corpuscular Volume 93, Mean Corpuscular Hemoglobin 30, Mean Corpuscular Hemoglobin Concent 33, Red Cell Distribution Width 17.8H, Platelet Count 42L, Mean Platelet Volume 10.4, Sodium Level 138, Potassium Level 2.9L, Chloride Level 103, Carbon Dioxide Level 20L, Anion Gap 15H, Blood Urea Nitrogen 19H, Creatinine 0.97, Estimat Glomerular Filtration Rate 62, BUN/Creatinine Ratio 20, Glucose Level 139H, Calcium Level 8.4L 11/16/22 22:56: Lactic Acid Level 3.75*H 11/17/22 01:13: Lactic Acid Level 5.39*H 11/17/22 03:04: White Blood Count 63.6*H, Red Blood Count 3.23L, Hemoglobin 9.9L, Hematocrit 29L , Mean Corpuscular Volume 91, Mean Corpuscular Hemoglobin 31, Mean Corpuscular Hemoglobin Concent 34, Red Cell Distribution Width 18.1H, Platelet Count 18*L, Mean Platelet Volume 10.2, Immature Granulocyte % (Auto) 1, Neutrophils (%) (Auto) 50, Lymphocytes (%) (Auto) 43, Monocytes (%) (Auto) 6, Eosinophils (%) (Auto) 0, Basophils (%) (Auto) 0, Neutrophils # (Auto) 31.8H, Lymphocytes # (Auto) 27.2H, Monocytes # (Auto) 3.9H, Eosinophils # (Auto) 0.0, Basophils # (Auto) 0.3H, Immature Granulocyte # (Auto) 0.5H, Neutrophils % (Manual) 8, Lymphocytes % (Manual) 36, Monocytes % (Manual) 33, Atypical Lymphocytes 25, Smudge Cells SLIGHT, Percent Immature Platelet Fraction 2.5, Anisocytosis SLIGHT, Sodium Level 137, Potassium Level 4.6, Chloride Level 107, Carbon Dioxide Level 16L, Anion Gap 14, Blood Urea Nitrogen 22H, Creatinine 1.55H, Estimat Glomerular Filtration Rate 35, BUN/Creatinine Ratio 14, Glucose Level 112H, Lactic Acid Level 3.46*H, Calcium Level 7.7L, Corrected Calcium 8.6, Phosphorus Level 4.2, Magnesium Level 1.4L, Total Bilirubin 0.3, Aspartate Amino Transf (AST/SGOT) 34, Alanine Aminotransferase (ALT/SGPT) 24, Alkaline Phosphatase 47, Total Protein 5.2L, Albumin 2.9L 11/17/22 04:56: Lactic Acid Level 3.46*H 11/17/22 06:59: Lactic Acid Level 2.03*H Microbiology 11/16/22 Urine Culture - Preliminary, Resulted Probable E.coli 11/16/22 Blood Culture - Preliminary, Resulted Probable Clostridium Assessment/Plan Assessment/Plan Assessment/Plan Colitis Thrombocytopenia Platelets decreased to 18 this morning Leukocytosis WBC trending up from 16 to 33 to 63 this morning Septis 2 peripheral cultures show Clostridium bactermia Lactic Acidosis Remains elevated at 2.03 this morning CAD, HTN, Hx of Breast CA IVF currently running at 100 per hour, would increasing to 150/200 per hour. Pain control and anti-emetics as needed CT shows colotiis of the ascending colon with inflammation and edema. Continue IV abx of pip-tazo and metronidazole. This morning she is afebrile but still has soft pressures, and her tachycardia has resolved If she needs surgery would need platelet transfusion, at this time I think she is a poor candidate due to bacteremia and entire clinical picture Clinical Quality Measures DVT/VTE Risk/Contraindication: Contraindications-Pharm: Other *list below* Other: low platelets SIS WEI DO 11/17/22 1505: Subjective Subjective/Events-last exam Still with abdominal pain. 10/10 pain. WBC 63K Still with nausea. Currently NPO. Feeling weak. Denies fever sweats chills shortness of breath or chest pain. Objective Exam General Appearance: WD/WN, Anxious HEENT: PERRL/EOMI, Normal ENT Inspection Neck: Non Tender, Supple Respiratory: Chest Non Tender, No Accessory Muscle Use, No Respiratory Distress Cardiovascular: Regular Rate, Rhythm, No JVD Gastrointestinal: soft, tenderness (tenderness right upper quadrant abdominal pain/right side) Neurologic/Psychiatric: Alert, Oriented x3 Skin: Normal Color, Warm/Dry Lymphatic: No Adenopathy Assessment/Plan Assessment/Plan Assessment/Plan Colitis Thrombocytopenia Sepsis Acute Leukemia Discussed with Dr. Frazier. She is transferring patient to . Discussed concern about ascending colon with patient. Patient understands and agrees with plan. Supervisory-Addendum Brief Verification & Attestation Participated in pt care: history, MDM, physical Personally performed: exam, history, MDM, supervision of care Care discussed with: Medical Student Procedures: n/a Results interpretation: Verified all documentation Verification and Attestation of Medical Student E/M Service A medical student performed and documented this service in my presence. I reviewed and verified all information documented by the medical student and made modifications to such information, when appropriate. I personally performed the physical exam and medical decision making. Sis Wei, Nov 17, 2022,15:05 ROB MARTINEZ Nov 17, 2022 11:22 SIS WEI DO Nov 17, 2022 15:05
[2022-11-17] MEDS ORDERED: VANCOMYCIN INJECTION 0.1 MG in NS (IVPB) 250 ML IV SCH (11:45)
--- NOTE | 2022-11-17 11:58 | Oncology Consultation ---
Visit Information Visit Information Date of Admission Nov 16, 2022 at 18:06 Attending Physician [facility] Admitting Physician Admitting Physician: Raiza Paul DO Attending Physician: Raiza Paul DO Chief Complaint Thrombocytopenia, severe colitis and sepsis. Interval History Ms. Suresh is a 72 year old white female known to me at cancer center for h/o stage I breast cancer (off treatment, no active issue), who presented to ER on 11/09/2022 not feeling good, tired and was found to have pancytopenia, WBC 1.9, Hb 10.3, Plt 20, 79% lymphocytes, no circulating blasts on blood smear. She had no localized symptoms and afebrile. She was discharged from ER to home with prednisone 60mg daily for possible ITP and had f/u with me 2 days later. I saw her this Sunday and her plt has no improvement except her WBC up to 16 due to possible steroid. I scheduled her for bone exam but patient did not want to have done this week. So it was postponed to next Sunday. Pt presented to ER last night with severe right side of abdominal pain, hypotensive, and CT scan showed severe localized colitis of the right side. Her WBC was up to 75k, Plt 42, Hb 10, with 49% L, no blasts on report. Pt was admitted to ICU and received triple IV antibiotics. This morning her WBC 65, Hb 9.9, Plt 18, Cr 1.45. She had completely normal CBC 05/2022. I consulted the patient on: 11/17/22 11:47 Time Seen by Provider: 11:51 Review of Systems Constitutional: see HPI Health Status Allergies Coded Allergies: latex (Verified Allergy, Intermediate, RASH, 09/09/20) Sulfa (Sulfonamide Antibiotics) (Verified Allergy, Unknown, 09/09/20) codeine (Verified Allergy, Unknown, 09/09/20) erythromycin base (Verified Allergy, Unknown, 09/09/20) Home Medications Aspirin (Aspirin) 81 Mg Tab.chew, 81 MG PO DAILY, (Reported) Cholecalciferol (Vitamin D3) (Vitamin D3) 50 Mcg Tablet, 50 MCG PO DAILY, (Reported) Hydrocodone/Acetaminophen (Hydrocodone/Acetaminophen 5 MG/325 MG TAB) 1 Each Tablet, 1 TAB PO Q4-6HR for 7 Days, #30 Prescribed by: SIS WEI on 09/09/20 1251 Lorazepam (Ativan) 1 Mg Tablet, 2 MG SL HS for 7 Days, (Reported) Losartan Potassium (Losartan Potassium) 25 Mg Tablet, 25 MG PO DAILY, (Reported) Magnesium (Magnesium) 250 Mg Tablet, 250 MG PO DAILY, (Reported) Multivitamin (Multivitamin) 1 Each Tablet, 1 EACH PO DAILY, (Reported) Pantoprazole Sodium (Protonix) 40 Mg Tablet.dr, 40 MG PO DAILY for 30 Days, #30 Prescribed by: ÓSCAR SINGH on 11/09/22 1719 Prednisone (Prednisone) 20 Mg Tab, 60 MG PO DAILY, #21 Prescribed by: ÓSCAR SINGH on 11/09/22 1719 Tramadol HCl (Tramadol HCl) 50 Mg Tablet, 50 MG PO DAILY, (Reported) PYM-Hnhnxt-Hkanrs Hx Patient Social History Smoking Status: Former Smoker Recent Hopitalizations: No Alcohol Use?: No Have you traveled recently?: No Immunizations Up To Date Date of Pneumonia Vaccine: Aug 11, 2012 Date of Influenza Vaccine: Aug 11, 2019 Family Medical History Significant Family History: Heart Disease, Cancer Physical Exam Vital Signs Vital Signs - First Documented 11/16/22 11/16/22 15:07 18:16 Temp 39.9 Pulse 113 Resp 22 B/P (MAP) 153/79 (103) Pulse Ox 94 O2 Delivery Room Air O2 Flow Rate 2.00 Capillary Refill : Height, Weight, BMI Height: 5'6" Weight: 198lbs. 0.0oz. 89.597103ii; 34.38 BMI Method:Stated General Appearance: No Apparent Distress, Anxious HEENT: PERRL/EOMI Respiratory: No Accessory Muscle Use, No Respiratory Distress Cardiovascular: Regular Rate, Rhythm, No Edema Gastrointestinal: Soft, Tenderness Extremity: Non Tender, No Calf Tenderness Neurologic/Psychiatric: Alert, Oriented x3 Skin: Petechia Data Review Labs Laboratory Tests 11/16/22 15:09 11/16/22 20:45 11/17/22 03:04 Laboratory Tests 11/16/22 15:09: White Blood Count 33.0*H, Red Blood Count 3.48L, Hemoglobin 10.7L, Hematocrit 31L, Red Cell Distribution Width 17.5H, Platelet Count 15*L, Neutrophils (%) (Auto) 14L, Lymphocytes (%) (Auto) 47H, Monocytes (%) (Auto) 19H, Lymphocytes # (Auto) 15.5H, Monocytes # (Auto) 6.4H, Immature Granulocyte # (Auto) 6.4H, Glucose Level 162H, Lactic Acid Level 2.21*H 11/16/22 15:33: 11/16/22 15:37: Urine Protein 1+H, Urine Nitrite POSITIVEH, Urine RBC (Auto) 2+H, Urine RBC 5- 10H, Urine Bacteria FEWH 11/16/22 18:07: Lactic Acid Level 2.57*H 11/16/22 20:00: Lactic Acid Level 2.99*H 11/16/22 20:45: White Blood Count 75.5*H, Red Blood Count 3.51L, Hemoglobin 10.6L, Hematocrit 33L, Red Cell Distribution Width 17.8H, Platelet Count 42L, Potassium Level 2.9L , Carbon Dioxide Level 20L, Anion Gap 15H, Blood Urea Nitrogen 19H, Glucose Level 139H, Calcium Level 8.4L 11/16/22 22:56: Lactic Acid Level 3.75*H 11/17/22 01:13: Lactic Acid Level 5.39*H 11/17/22 03:04: White Blood Count 63.6*H, Red Blood Count 3.23L, Hemoglobin 9.9L, Hematocrit 29L , Red Cell Distribution Width 18.1H, Platelet Count 18*L, Neutrophils # (Auto) 31.8H, Lymphocytes # (Auto) 27.2H, Monocytes # (Auto) 3.9H, Basophils # (Auto) 0.3H, Immature Granulocyte # (Auto) 0.5H, Carbon Dioxide Level 16L, Blood Urea Nitrogen 22H, Creatinine 1.55H, Glucose Level 112H, Lactic Acid Level 3.46*H, Calcium Level 7.7L, Magnesium Level 1.4L, Total Protein 5.2L, Albumin 2.9L 11/17/22 04:56: Lactic Acid Level 3.46*H 11/17/22 06:59: Lactic Acid Level 2.03*H 11/17/22 12:17: Impression & Plan Impression & Plan IMP: 1. Severe localized colitis per CT scan with abdominal pain on triple IV antibiotics per ICU team 2. Hypotensive sepsis 3. Pancytopenia at initial presentation 11/09/2022, now severe leukocytosis up to 75 last night, now reported circulating monocytic blasts, normal CBC 05/2022. 4. Thrombocytopenia due to infection and possible ITP. 5. Acute renal insufficiency Cr 1.45 due to sepsis 12:53PM Addendum: 1. Pathology lab called me at 12:30pm and told me that patient has 43% circulating monocytic blasts. The previous reported lymphocytes on her CBC were circulating monocytic blasts. 2. I went back to patient and her and told them the results. I told patient that she needs to be transferred to [facility] for further work up and treatment. She agreed. 3. I called [facility] transfer line to initiated the transfer. I suggest to transfer by ambulance. 4. Cancel previous IVIG order for possible ITP, continue current IV antibiotics. 5. Pt may also need surgery consultation at [facility] for her severe localized colitis. NIRAV SOLIS MD Nov 17, 2022 11:58
[2022-11-17] MEDS ORDERED: VANCOMYCIN 1,750 MG/NS 500 ML IVPB IV NR ×2 (12:00)
[2022-11-17] MEDS ORDERED: IVIG 40 GM/400 ML (PRIVIGEN) IV SCH (13:00)
[2022-11-17] MEDS ORDERED: IMMU GLOBULIN,GAMMA 200 ML IV NR ×2 (13:00→14:00)
[2022-11-17 13:01] LABS: ABSOLUTE RETIC # 15 10e9/uL (24-90); RETICULOCYTE % 0.45 % (0.50-2.40)
[2022-11-17] MEDS ORDERED: EZET10TA49 PO (13:06)
[2022-11-17] MEDS ORDERED: PRD20T PO (13:06)
[2022-11-17] MEDS ORDERED: PANT40TA52 PO (13:06)
[2022-11-17] MEDS ORDERED: ACET-2267 PO (13:06)
[2022-11-17] MEDS ORDERED: LORA-405 PO (13:06)
[2022-11-17] MEDS ORDERED: CELE-63 PO (13:06)
--- NOTE | 2022-11-17 20:21 | Discharge Summary ---
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 Severe sepsis Colitis Clostridium bacteremia E coli UTI Severe thrombocytopenia Fibromyalgia Discharge Summary Discharge Physical Examination Allergies: Coded Allergies: latex (Verified Allergy, Intermediate, RASH, 09/09/20) Sulfa (Sulfonamide Antibiotics) (Verified Allergy, Unknown, 09/09/20) codeine (Verified Allergy, Unknown, 09/09/20) erythromycin base (Verified Allergy, Unknown, 09/09/20) Vitals & I&Os Vital Signs Date Time Temp Pulse Resp B/P (MAP) Pulse Ox O2 Delivery O2 Flow Rate FiO2 11/17/22 15:00 88 17 106/50 (68) 92 Nasal Cannula 1.50 11/17/22 06:22 36.7 Hospital Course Was the Problem List Reviewed?: Yes Short overnight course after she was admitted for severe sepsis from colitis and BCx noted to have all bottles + for Clostridium bacteremia. Zosyn and Flagyl maintained while Dr Harris was consulted and patient was placed in ICU. Aggressi ve IVF given. Dr Frazier consulted for the thrombocytopenia whom she had seen in the recent past assessed to have some sort of myelodysplasia but upon evaluation with pathologist Dr Frazier diagnosed acute myeloid leukemia so she was transferred to [facility]. Labs (last 24 hrs) Laboratory Tests 11/16/22 15:09: White Blood Count 33.0*H, Red Blood Count 3.48L, Hemoglobin 10.7L, Hematocrit 31L, Mean Corpuscular Volume 90, Mean Corpuscular Hemoglobin 31, Mean Corpuscular Hemoglobin Concent 34, Red Cell Distribution Width 17.5H, Platelet Count 15*L, Mean Platelet Volume 10.3, Immature Granulocyte % (Auto) 19, Neutrophils (%) (Auto) 14L, Lymphocytes (%) (Auto) 47H, Monocytes (%) (Auto) 19H , Eosinophils (%) (Auto) 0, Basophils (%) (Auto) 0, Neutrophils # (Auto) 4.5, Lymphocytes # (Auto) 15.5H, Monocytes # (Auto) 6.4H, Eosinophils # (Auto) 0.0, Basophils # (Auto) 0.1, Immature Granulocyte # (Auto) 6.4H, Neutrophils % (Manual) 13, Lymphocytes % (Manual) 56, Monocytes % (Manual) 13, Nucleated Red Blood Cells 1, Atypical Lymphocytes 18, Percent Immature Platelet Fraction 2.7, Microcytosis SLIGHT, Prothrombin Time 13.7, INR Comment 1.0, Activated Partial Thromboplast Time 27, Sodium Level 137, Potassium Level 3.6, Chloride Level 103, Carbon Dioxide Level 22, Anion Gap 12, Blood Urea Nitrogen 18, Creatinine 0.90, Estimat Glomerular Filtration Rate 68, BUN/Creatinine Ratio 20, Glucose Level 162H, Lactic Acid Level 2.21*H, Calcium Level 8.8, Corrected Calcium 9.0, Total Bilirubin 0.5, Aspartate Amino Transf (AST/SGOT) 30, Alanine Aminotransferase (ALT/SGPT) 24, Alkaline Phosphatase 47, Total Protein 6.7, Albumin 3.7 11/16/22 15:33: Influenza Type A (RT-PCR) Not Detected, Influenza Type B (RT-PCR) Not Detected, SARS-CoV-2 RNA (RT-PCR) Not Detected 11/16/22 15:37: Urine Color ORANGE, Urine Clarity CLEAR, Urine pH 5.5, Urine Specific [place] 1.020, Urine Protein 1+H, Urine Glucose (UA) NEGATIVE, Urine Ketones NEGATIVE, Urine Nitrite POSITIVEH, Urine Bilirubin NEGATIVE, Urine Urobilinogen 0.2, Urine Leukocyte Esterase NEGATIVE, Urine RBC (Auto) 2+H, Urine RBC 5-10H, Urine WBC 2- 5, Urine Squamous Epithelial Cells 2-5, Urine Crystals NONE, Urine Bacteria FEWH , Urine Casts NONE, Urine Mucus NEGATIVE, Urine Culture Indicated CULTURE PENDING 11/16/22 18:07: Lactic Acid Level 2.57*H 11/16/22 20:00: Lactic Acid Level 2.99*H 11/16/22 20:45: White Blood Count 75.5*H, Red Blood Count 3.51L, Hemoglobin 10.6L, Hematocrit 33L, Mean Corpuscular Volume 93, Mean Corpuscular Hemoglobin 30, Mean Corpuscular Hemoglobin Concent 33, Red Cell Distribution Width 17.8H, Platelet Count 42L, Mean Platelet Volume 10.4, Sodium Level 138, Potassium Level 2.9L, Chloride Level 103, Carbon Dioxide Level 20L, Anion Gap 15H, Blood Urea Nitrogen 19H, Creatinine 0.97, Estimat Glomerular Filtration Rate 62, BUN/Creatinine Ra theodore 20, Glucose Level 139H, Calcium Level 8.4L 11/16/22 22:56: Lactic Acid Level 3.75*H 11/17/22 01:13: Lactic Acid Level 5.39*H 11/17/22 03:04: White Blood Count 63.6*H, Red Blood Count 3.23L, Hemoglobin 9.9L, Hematocrit 29L , Mean Corpuscular Volume 91, Mean Corpuscular Hemoglobin 31, Mean Corpuscular Hemoglobin Concent 34, Red Cell Distribution Width 18.1H, Platelet Count 18*L, Mean Platelet Volume 10.2, Immature Granulocyte % (Auto) 1, Neutrophils (%) (Auto) 50, Lymphocytes (%) (Auto) 43, Monocytes (%) (Auto) 6, Eosinophils (%) (Auto) 0, Basophils (%) (Auto) 0, Neutrophils # (Auto) 31.8H, Lymphocytes # (Auto) 27.2H, Monocytes # (Auto) 3.9H, Eosinophils # (Auto) 0.0, Basophils # (Auto) 0.3H, Immature Granulocyte # (Auto) 0.5H, Neutrophils % (Manual) 8, Lymphocytes % (Manual) 36, Monocytes % (Manual) 33, Atypical Lymphocytes 25, Smudge Cells SLIGHT, Percent Immature Platelet Fraction 2.5, Anisocytosis SLIGHT, Absolute Reticulocyte Count 15L, Percent Reticulocyte Count 0.45L, Sodium Level 137, Potassium Level 4.6, Chloride Level 107, Carbon Dioxide Level 16L, Anion Gap 14, Blood Urea Nitrogen 22H, Creatinine 1.55H, Estimat Glomerular Filtration Rate 35, BUN/Creatinine Ratio 14, Glucose Level 112H, Lactic Acid Level 3.46*H, Calcium Level 7.7L, Corrected Calcium 8.6, Phosphorus Level 4.2, Magnesium Level 1.4L, Total Bilirubin 0.3, Aspartate Amino Transf (AST/SGOT) 34, Alanine Aminotransferase (ALT/SGPT) 24, Alkaline Phosphatase 47, Total Protein 5.2L, Albumin 2.9L 11/17/22 04:56: Lactic Acid Level 3.46*H 11/17/22 06:59: Lactic Acid Level 2.03*H 11/17/22 12:17: Glucometer 92 Microbiology 11/16/22 MRSA Screen - Final, Complete MRSA not isolated 11/16/22 Urine Culture - Preliminary, Resulted Escherichia coli Mixed Bacterial Patricia See Comments 11/16/22 Blood Culture - Preliminary, Resulted Probable Clostridium Gram Positive Cocci in Cluster Pending Labs Microbiology Date/Time Source Procedure Growth Status 11/16/22 18:55 Nasal MRSA Screen - Final MRSA not isolated Complete 11/16/22 15:37 Urine Clean Catch Urine Culture - Preliminary Escherichia coli Mixed Bacterial Patricia See Comments Resulted 11/16/22 15:12 Peripheral Rt Ac Blood Culture - Preliminary Probable Clostridium Gram Positive Cocci in Cluster Resulted 11/16/22 15:09 Peripheral Lt Ac Blood Culture - Preliminary Probable Clostridium Resulted Laboratory Tests 11/16/22 15:09: White Blood Count 33.0, Red Blood Count 3.48, Hemoglobin 10.7, Hematocrit 31, Mean Corpuscular Volume 90, Mean Corpuscular Hemoglobin 31, Mean Corpuscular Hemoglobin Concent 34, Red Cell Distribution Width 17.5, Platelet Count 15, Mean Platelet Volume 10.3, Immature Granulocyte % (Auto) 19, Neutrophils (%) (Auto) 14, Lymphocytes (%) (Auto) 47, Monocytes (%) (Auto) 19, Eosinophils (%) (Auto) 0, Basophils (%) (Auto) 0, Neutrophils # (Auto) 4.5, Lymphocytes # (Auto) 15.5, Monocytes # (Auto) 6.4, Eosinophils # (Auto) 0.0, Basophils # (Auto) 0.1, Immature Granulocyte # (Auto) 6.4, Neutrophils % (Manual) 13, Lymphocytes % (Manual) 56, Monocytes % (Manual) 13, Nucleated Red Blood Cells 1, Atypical Lymphocytes 18, Percent Immature Platelet Fraction 2.7, Microcytosis SLIGHT, Prothrombin Time 13.7, INR Comment 1.0, Activated Partial Thromboplast Time 27, Sodium Level 137, Potassium Level 3.6, Chloride Level 103, Carbon Dioxide Level 22, Anion Gap 12, Blood Urea Nitrogen 18, Creatinine 0.90, Estimat Glomerular Filtration Rate 68, BUN/Creatinine Ratio 20, Glucose Level 162, Lactic Acid [place] 2.21, Calcium Level 8.8, Corrected Calcium 9.0, Total Bilirubin 0.5, Aspartate Amino Transf (AST/SGOT) 30, Alanine Aminotransferase (ALT/SGPT) 24, Alkaline Phosphatase 47, Total Protein 6.7, Albumin 3.7 11/16/22 15:33: Influenza Type A (RT-PCR) Not Detected, Influenza Type B (RT-PCR) Not Detected, SARS-CoV-2 RNA (RT-PCR) Not Detected 11/16/22 15:37: Urine Color ORANGE, Urine Clarity CLEAR, Urine pH 5.5, Urine Specific [place] 1.020, Urine Protein 1+, Urine Glucose (UA) NEGATIVE, Urine Ketones NEGATIVE, Urine Nitrite POSITIVE, Urine Bilirubin NEGATIVE, Urine Urobilinogen 0.2, Urine Leukocyte Esterase NEGATIVE, Urine RBC (Auto) 2+, Urine RBC 5-10, Urine WBC 2-5, Urine Squamous Epithelial Cells 2-5, Urine Crystals NONE, Urine Bacteria FEW, Urine Casts NONE, Urine Mucus NEGATIVE, Urine Culture Indicated CULTURE PENDING 11/16/22 18:07: Lactic Acid Level 2.57 11/16/22 20:00: Lactic Acid Level 2.99 11/16/22 20:45: White Blood Count 75.5, Red Blood Count 3.51, Hemoglobin 10.6, Hematocrit 33, Mean Corpuscular Volume 93, Mean Corpuscular Hemoglobin 30, Mean Corpuscular Hemoglobin Concent 33, Red Cell Distribution Width 17.8, Platelet Count 42, Mean Platelet Volume 10.4, Sodium Level 138, Potassium Level 2.9, Chloride Level 103, Carbon Dioxide Level 20, Anion Gap 15, Blood Urea Nitrogen 19, Creatinine 0.97, Estimat Glomerular Filtration Rate 62, BUN/Creatinine Ratio 20, Glucose Level 139, Calcium Level 8.4 11/16/22 22:56: Lactic Acid Level 3.75 11/17/22 01:13: Lactic Acid Level 5.39 11/17/22 03:04: White Blood Count 63.6, Red Blood Count 3.23, Hemoglobin 9.9, Hematocrit 29, Mean Corpuscular Volume 91, Mean Corpuscular Hemoglobin 31, Mean Corpuscular Hemoglobin Concent 34, Red Cell Distribution Width 18.1, Platelet Count 18, Mean Platelet Volume 10.2, Immature Granulocyte % (Auto) 1, Neutrophils (%) (Auto) 50, Lymphocytes (%) (Auto) 43, Monocytes (%) (Auto) 6, Eosinophils (%) (Auto) 0, Basophils (%) (Auto) 0, Neutrophils # (Auto) 31.8, Lymphocytes # (Auto) 27.2, Monocytes # (Auto) 3.9, Eosinophils # (Auto) 0.0, Basophils # (Auto) 0.3, Immature Granulocyte # (Auto) 0.5, Neutrophils % (Manual) 8, Lymphocytes % (M anual) 36, Monocytes % (Manual) 33, Atypical Lymphocytes 25, Smudge Cells SLIGHT, Percent Immature Platelet Fraction 2.5, Anisocytosis SLIGHT, Absolute Reticulocyte Count 15, Percent Reticulocyte Count 0.45, Sodium Level 137, Potassium Level 4.6, Chloride Level 107, Carbon Dioxide Level 16, Anion Gap 14, Blood Urea Nitrogen 22, Creatinine 1.55, Estimat Glomerular Filtration Rate 35, BUN/Creatinine Ratio 14, Glucose Level 112, Lactic Acid Level 3.46, Calcium Level 7.7, Corrected Calcium 8.6, Phosphorus Level 4.2, Magnesium Level 1.4, Total Bilirubin 0.3, Aspartate Amino Transf (AST/SGOT) 34, Alanine Aminotransferase (ALT/SGPT) 24, Alkaline Phosphatase 47, Total Protein 5.2, Albumin 2.9 11/17/22 04:56: Lactic Acid Level 3.46 11/17/22 06:59: Lactic Acid Level 2.03 11/17/22 12:17: Glucometer 92 Discharge Home Medications: Active Scripts Active Reported Tylenol Extra Strength (Acetaminophen) 500 Mg Tablet 1,000 Mg PO Q8H PRN Ezetimibe 10 Mg Tablet 10 Mg PO DAILY Celecoxib 200 Mg Capsule 200 Mg PO DAILY Pantoprazole Sodium 40 Mg Tablet.dr 40 Mg PO HS Prednisone 20 Mg Tab 60 Mg PO DAILY TAKES 3 (20MG) TABS FILLED 11-15-2022 #42/14 DAY SUPPLY Ativan (Lorazepam) 1 Mg Tablet 1.5 Mg PO HS TAKES 1 & (1MG) TABS Losartan Potassium 25 Mg Tablet 25 Mg PO DAILY Instructions to patient/family Please see electronic discharge instructions given to patient. Clinical Quality Measures DVT/VTE Risk/Contraindication: Contraindications-Pharm: Other *list below* Other: low platelets MEKHI MANTILLA DO Nov 17, 2022 20:21
[2022-11-18] MEDS ORDERED: IMMU GLOBULIN,GAMMA 200 ML IV NR (10:00)
[2022-11-18] MEDS ORDERED: IMMU GLOBULIN,GAMMA 100 ML IV SCH ×2 (11:00→12:00)
[2022-11-18] MEDS ORDERED: VANCOMYCIN 1500 MG/NS 500 ML IVPB IV SCH ×2 (12:00)
[2022-11-19] MEDS ORDERED: TROUGH ORDER-PHARMACY XX NR (11:00)
== END 2022-11-17 15:25 | disposition short-term general hospital (02) | DRG 872 ==
LOC: EDUNIT# 14:55 → ER 14:56 → ICU 18:06
PROVIDERS: ADMIT Internal Medicine; ATTEND Internal Medicine
DX: A41.9 Sepsis, unspecified organism (principal); A04.72 Enterocolitis due to Clostridium difficile, not specified as recurrent; N39.0 Urinary tract infection, site not specified; C92.00 Acute myeloblastic leukemia, not having achieved remission; E87.20 Acidosis, unspecified; N17.9 Acute kidney failure, unspecified; R65.20 Severe sepsis without septic shock; Z20.822 Contact with and (suspected) exposure to COVID-19; B96.20 Unspecified Escherichia coli [E. coli] as the cause of diseases classified elsewhere; D69.6 Thrombocytopenia, unspecified; M79.7 Fibromyalgia; Z88.2 Allergy status to sulfonamides; Z88.6 Allergy status to analgesic agent; Z88.1 Allergy status to other antibiotic agents; Z91.040 Latex allergy status; I25.10 Atherosclerotic heart disease of native coronary artery without angina pectoris; I10 Essential (primary) hypertension; K57.90 Diverticulosis of intestine, part unspecified, without perforation or abscess without bleeding; M81.0 Age-related osteoporosis without current pathological fracture; M19.90 Unspecified osteoarthritis, unspecified site; Z79.82 Long term (current) use of aspirin; Z79.899 Other long term (current) drug therapy; Z87.891 Personal history of nicotine dependence; Z85.3 Personal history of malignant neoplasm of breast; E86.0 Dehydration; I95.9 Hypotension, unspecified
CPT/HCPCS: 36415; 36569; 70450; 71045; 74177; 76937; 80048; 80053; 81000; 82947; 83605; 83735; 84100; 85007; 85027; 85045; 85055; 85610; 85730; 86850; 86900; 86901; 87040; 87077; 87081; 87088; 87186; 87636